=== PATIENT | female | born 1970 | race Caucasian/White ===

== ENCOUNTER 2019-10-20 22:42 | Inpatient (IN) | payer MEDICAID ==
[~2019-10-20] VITALS: Ht 162.6 cm; Wt 75.5 kg
[2019-10-20 23:35] VITALS: BP 122/78
[2019-10-20 23:55] VITALS: BP 122/78
[2019-10-21] MEDS ORDERED: ONDANSETRON HCL 4 MG/2 ML VIAL IV PRN (00:15)
[2019-10-21] MEDS ORDERED: MORPHINE SULF INJ 2 MG/ML SYRINGE 1ML IV PRN (00:15)
[2019-10-21] MEDS ORDERED: NITROGLYCERIN 0.4 MG SL TAB SL PRN (00:15)
[2019-10-21] MEDS ORDERED: IBUPROFEN 600 MG TAB PO PRN (00:30)
[2019-10-21] MEDS ORDERED: CAR3125T PO (02:20)
[2019-10-21] MEDS ORDERED: FURO1TAB33 PO (02:21)
[2019-10-21] MEDS ORDERED: POTA10TA51 PO (02:21)
[2019-10-21] MEDS ORDERED: ASPI-231 PO (02:22)
[2019-10-21] MEDS ORDERED: SPIR25TA8 PO (02:22)
[2019-10-21 04:57] VITALS: BP 113/77
[2019-10-21 05:19] LABS: Basophils # (auto) 0.1 10 ^3/uL (0-0.2); Basophils % (auto) 0.7 % (0.0-2.0); Eosinophils # (auto) 0.1 10 ^3/uL (0-0.8); Eosinophils % (auto) 1.9 % (0.0-7.0); Hematocrit 36.9 % (36.0-46.0); Hemoglobin 11.7 g/dL (12.2-16.2); Lymphocytes # (auto) 2.2 10 ^3/uL (0.4-5.4); Lymphocytes % (auto) 30.3 % (10.0-50.0); Mean Corpuscular Hemoglobin 24.5 pg (28.0-32.0); Mean Corpuscular Hgb Conc. 31.6 g/dL (32.0-36.0); Mean Corpuscular Volume 77.4 fL (80.0-100.0); Monocytes # (auto) 0.6 10 ^3/uL (0-1.3); Monocytes % (auto) 8.3 % (0.0-12.0); Neutrophils # (auto) 4.2 10 ^3/uL (1.6-8.6); Neutrophils % (auto) 58.8 % (37.0-80.0); Nucleated Red Blood Cells % 0.1 %; Platelet Count (auto) 424 10^3/uL (140-450); Red Blood Cells 4.77 10^6/uL (4.0-5.20); Red Cell Distribution Width 19.2 % (11.8-14.3); White Blood Cell 7.1 10^3/uL (4.4-10.8)
[2019-10-21 05:38] LABS: Calcium 8.6 mg/dL (8.5-10.1); Potassium 3.9 mmol/L (3.5-5.1)
[2019-10-21 05:43] LABS: BUN/Creatinine Ratio 22.9
[2019-10-21 08:47] VITALS: BP 109/78
[2019-10-21] MEDS ORDERED: MIDAZOLAM HCL 1MG/1ML-2 ML VIAL ONE (09:53)
[2019-10-21] MEDS ORDERED: fentaNYL CITRATE 100 MCG/2 ML VL ONE (09:53)
[2019-10-21] MEDS ORDERED: SODIUM CHL 0.9% 0 ML ONE (09:53)
[2019-10-21] MEDS ORDERED: ANGIOMAX 250 MG VIAL IV ONE (09:53)
[2019-10-21] MEDS ORDERED: VERAPAMIL 2.5MG/ML INJ 2ML VIAL IV ONE (09:53)
[2019-10-21] MEDS ORDERED: IODIXANOL 320MG/ML 100ML BTL IV ONE (09:53)
[2019-10-21] MEDS ORDERED: LIDOCAINE 2%HCL (LOCAL ANESTH.) INJ 20ML MDV ONE ×2 (09:53→10:06)
[2019-10-21] MEDS ORDERED: HEPARIN IN NS 1000Units/500mL 0 ML ONE (09:54)
[2019-10-21] MEDS ORDERED: ENOXAPARIN SOD 40 MG/0.4 ML SYRINGE SC SCH (10:00)
[2019-10-21] MEDS ORDERED: CARVEDILOL 3.125 MG TAB PO SCH (10:00)
[2019-10-21] MEDS ORDERED: ATORVASTATIN 20 MG TAB PO SCH (10:00)
[2019-10-21] MEDS ORDERED: ASPirin 81 mg TAB PO SCH (10:00)
[2019-10-21 10:11] LABS: INR 1.13 (0.9-1.15); Partial Thromboplastin Time 25.1 sec (23.64-32.05)
[2019-10-21] MEDS ORDERED: methylPREDNISolone SOD SUCC 125 MG/2 ML VL ONE (10:48)
[2019-10-21] MEDS ORDERED: FAMOTIDINE (10MG/ML) 2ML VL IV ONE (10:48)
[2019-10-21] MEDS ORDERED: diphenhdrAMINE HCL 50 MG/1 ML VL ONE (10:48)
[2019-10-21] MEDS ORDERED: HEPARIN SODIUM (PORCINE) 5000 UNITS/ML 1ML VIAL ONE (11:00)
[2019-10-21 13:00] VITALS: BP 106/72
[2019-10-21 17:00] VITALS: BP 109/79
[2019-10-21] MEDS ORDERED: LISI2.5T47 PO (17:13)
[2019-10-21] MEDS ORDERED: LISINOPRIL 5 MG TAB PO ONE (17:15)
== END 2019-10-21 19:20 | disposition home or self-care (01) | DRG 190 ==
LOC: TELE-WESTW 23:40
PROVIDERS: ADMIT Internal Medicine; ATTEND Internal Medicine
PROC: 4A023N7 Measurement of Cardiac Sampling and Pressure, Left Heart, Percutaneous Approach (ICD-10-PCS; principal; 2019-10-21)
PROC: B211YZZ Fluoroscopy of Multiple Coronary Arteries using Other Contrast (ICD-10-PCS; 2019-10-21)
DX: I21.4 Non-ST elevation (NSTEMI) myocardial infarction (principal); I42.0 Dilated cardiomyopathy; F15.90 Other stimulant use, unspecified, uncomplicated; Z72.0 Tobacco use; Z79.899 Other long term (current) drug therapy; Z82.49 Family history of ischemic heart disease and other diseases of the circulatory system; Z82.5 Family history of asthma and other chronic lower respiratory diseases; Z91.041 Radiographic dye allergy status; Z79.82 Long term (current) use of aspirin
CPT/HCPCS: 36415; 80048; 80061; 81025; 83036; 84484; 85025; 85610; 85730; 87081; 93458; G0378; J2250; J3490; Q9967

== ENCOUNTER 2019-12-04 08:21 | Inpatient (IN) | payer MEDICAID ==
[~2019-12-04] VITALS: Ht 167.6 cm; Wt 80.7 kg
[~2019-12-04 08:21] MED LIST: ASPI-231 PO; CAR3125T PO; LISI2.5T47 PO; POTA10TA51 PO; SPIR25TA8 PO
[2019-12-04 08:50] LABS: Basophils # (auto) 0.1 10 ^3/uL (0-0.2); Eosinophils # (auto) 0.1 10 ^3/uL (0-0.8); Hemoglobin 11.4 g/dL (12.2-16.2)
[2019-12-04 08:52] LABS: Basophils % (auto) 0.8 % (0.0-2.0); Eosinophils % (auto) 1.3 % (0.0-7.0); Hematocrit 37.2 % (36.0-46.0); Lymphocytes # (auto) 2.3 10 ^3/uL (0.4-5.4); Mean Corpuscular Hgb Conc. 30.7 g/dL (32.0-36.0); Mean Corpuscular Volume 75.1 fL (80.0-100.0); Monocytes # (auto) 0.6 10 ^3/uL (0-1.3); Monocytes % (auto) 8.1 % (0.0-12.0); Neutrophils # (auto) 4.4 10 ^3/uL (1.6-8.6); Neutrophils % (auto) 58.8 % (37.0-80.0); Nucleated Red Blood Cells % 0.1 %; Platelet Count (auto) 287 10^3/uL (140-450); Red Blood Cells 4.95 10^6/uL (4.0-5.20); White Blood Cell 7.5 10^3/uL (4.4-10.8)
[2019-12-04 08:55] LABS: Red Cell Distribution Width 23.5 % (11.8-14.3)
[2019-12-04 09:05] LABS: Albumin 3.4 g/dL (3.4-5.0); BUN/Creatinine Ratio 19.5; Calcium 8.5 mg/dL (8.5-10.1); Potassium 3.6 mmol/L (3.5-5.1)
[2019-12-04 09:10] LABS: Urine Bacteria FEW /hpf (None Seen); Urine Blood Negative /uL (Negative); Urine Hyaline Cast FEW /lpf (0 - 2); Urine Specific Gravity 1.019 (1.001-1.035); Urine WBC 9 /hpf (0 - 5)
[2019-12-04 09:11] LABS: Bilirubin, Total 1.3 mg/dL (0.2-1.0); Total Protein 7.5 g/dL (6.4-8.2)
[2019-12-04 09:34] LABS: Alcohol, Urine < 3.0 mg/dL (0-5); Amphetamine Screen, Urine NEGATIVE (NEGATIVE); Barbiturate Scree,Urine NEGATIVE (NEGATIVE); Benzodiazephine Screen, Urine NEGATIVE (NEGATIVE); Cannabinoid Screen, Urine NEGATIVE (NEGATIVE); Cocaine Screen, Urine NEGATIVE (NEGATIVE); Opiate Scree,Urine NEGATIVE (NEGATIVE); Phencyclidine Screen, Urine NEGATIVE (NEGATIVE)
[2019-12-04] MEDS ORDERED: FUROSEMIDE 20 MG/2 ML VIAL IV ONE ×2 (10:30→15:15)
[2019-12-04] MEDS ORDERED: SPIRONOLACTONE 25 MG TAB PO ONE (10:30)
[2019-12-04] MEDS ORDERED: cefTRIAXone 1GM/50ML D5W 50 ML IV ONE (10:30)
[2019-12-04] MEDS ORDERED: MORPHINE SULF INJ 2 MG/ML SYRINGE 1ML IV PRN ×2 (11:15)
[2019-12-04] MEDS ORDERED: NITROGLYCERIN 0.4 MG SL TAB SL PRN (11:15)
[2019-12-04] MEDS ORDERED: ONDANSETRON HCL 4 MG/2 ML VIAL IV PRN (11:15)
[2019-12-04] MEDS ORDERED: ACETAMINOPHEN 325 MG TAB PO PRN (11:15)
[2019-12-04] MEDS: CARVEDILOL 3.125 MG TAB PO SCH ×2 (12:30→17:48)
--- NOTE | 2019-12-04 12:30 | NUR ---
Telemetry admit from ER DIONICIOPATRICIA admitted to Telemetry unit after SBAR received. Patient oriented to PAULA VICTORIA, primary RN, unit, room, bed, and unit policies regarding patient care and visiting hours. Patient now on continuous telemetry monitoring, tele box #80 and telemetry reading on arrival to unit is SR. Patient encouraged to call if they need something. All questions and concerns addressed, patient verbalized understanding. Patient is alert and oriented and ambulatory independently. Skin is intact. She is sitting on the side of the bed eating lunch at this time. Bilateral heels are dry and cracked, she is wearing slippers.
[2019-12-04 13:27] VITALS: BP 131/90
[2019-12-04 17:00] VITALS: BP 119/89
[2019-12-04] MEDS ORDERED: ATORVASTATIN 20 MG TAB PO SCH (18:00)
--- NOTE | 2019-12-04 19:25 | NUR ---
Opening shift note Assumed care of patient. patient A&Ox4, respirations even and non-labored with no s/s of distress. Discussed POC with patient who verbalized understanding. Bed lowered/locked with 2 side rails up. Call light within reach, will continue to monitor.
[2019-12-04] MEDS: ALPRAZolam 0.25 MG TAB PO SCH (21:55)
[2019-12-04 22:00] VITALS: BP 116/87
[2019-12-04] MEDS ORDERED: AMITRIPTYLINE HCL 10 MG TAB PO SCH (22:00)
[2019-12-05 05:00] VITALS: BP 119/81
[2019-12-05 06:57] LABS: Basophils # (auto) 0.1 10 ^3/uL (0-0.2); Eosinophils # (auto) 0.1 10 ^3/uL (0-0.8); Lymphocytes # (auto) 2.5 10 ^3/uL (0.4-5.4); Mean Corpuscular Hemoglobin 23.3 pg (28.0-32.0); Neutrophils # (auto) 3.1 10 ^3/uL (1.6-8.6); White Blood Cell 6.3 10^3/uL (4.4-10.8)
[2019-12-05 06:59] LABS: Basophils % (auto) 1.1 % (0.0-2.0); Eosinophils % (auto) 2.3 % (0.0-7.0); Hematocrit 36.5 % (36.0-46.0); Hemoglobin 11.3 g/dL (12.2-16.2); Lymphocytes % (auto) 40.1 % (10.0-50.0); Mean Corpuscular Hgb Conc. 31.1 g/dL (32.0-36.0); Monocytes # (auto) 0.5 10 ^3/uL (0-1.3); Monocytes % (auto) 7.2 % (0.0-12.0); Neutrophils % (auto) 49.3 % (37.0-80.0); Nucleated Red Blood Cells % 0.1 %; Platelet Count (auto) 291 10^3/uL (140-450); Red Blood Cells 4.86 10^6/uL (4.0-5.20)
[2019-12-05 07:03] LABS: Red Cell Distribution Width 23.4 % (11.8-14.3)
[2019-12-05 07:12] LABS: Albumin 3.1 g/dL (3.4-5.0); Calcium 8.3 mg/dL (8.5-10.1); Potassium 3.3 mmol/L (3.5-5.1)
[2019-12-05 07:16] LABS: BUN/Creatinine Ratio 20.2
--- NOTE | 2019-12-05 07:30 | NUR ---
OPENING NOTE ASSUMED CARE OF PT. PT ALERT AND ORIENTED. NO S/S OF SOB/DISTRESS NOTED. BED SET TO LOWEST POSITION/LOCKED, BEDSIDE RAILS UP X2, CALL LIGHT WITHIN REACH. INSTRUCTED PATIENT TO CALL FOR ASSISTANCE. UPDATED ON POC. PT VERBALIZED UNDERSTANDING. WILL CONTINUE TO MONITOR Q1HR AND PRN.
--- NOTE | 2019-12-05 07:33 | NUR ---
Closing shift note Patient resting with eyes closed, respirations even and non-labored with no s/s of distress. Endorsed care to day shift primary care RN.
[2019-12-05 08:48] VITALS: BP 106/83
[2019-12-05] MEDS: CARVEDILOL 3.125 MG TAB PO SCH (09:12)
[2019-12-05] MEDS: ALPRAZolam 0.25 MG TAB PO SCH (09:12)
[2019-12-05] MEDS ORDERED: cefTRIAXone 1GM/50ML D5W 50 ML IV SCH (10:00)
[2019-12-05] MEDS ORDERED: POTASSIUM CHL 10 Meq TABLET PO SCH (10:00)
[2019-12-05] MEDS ORDERED: LISINOPRIL 5 MG TAB PO SCH (10:00)
[2019-12-05] MEDS ORDERED: SPIRONOLACTONE 25 MG TAB PO SCH (10:00)
[2019-12-05] MEDS ORDERED: ASPirin-EC 81 mg tab PO SCH (10:00)
[2019-12-05] MEDS ORDERED: ENOXAPARIN SOD 40 MG/0.4 ML SYRINGE SC SCH (10:00)
[2019-12-05] MEDS ORDERED: [UNRECOGNIZED DRUG - CODE] PO (11:09)
[2019-12-05] MEDS ORDERED: ALPR0.25 PO (11:09)
[2019-12-05 12:46] VITALS: BP 106/83
[2019-12-05 12:59] VITALS: BP 109/87
--- NOTE | 2019-12-05 13:38 | NUR ---
TELE MONITOR TELE BOX SENT BACK TO ICU. SOLUTION DESIGNER ELLIE IS AWARE. Addendum: 12/05/19 at 1340 by Tracy Rainey RN TELE BOX #[id number]
--- NOTE | 2019-12-05 13:39 | NUR ---
Discharge instructions given as ordered. Encourage to follow up with PMD as instructed. All questions and concerns addressed. Patient verbalized understanding. IV removed with catheter intact, pressure dressing applied. Telemetry unit returned to ICU #80.
--- NOTE | 2019-12-05 13:53 | NUR ---
Patient taken to vehicle via wheelchair with all personal belongings, accompanied by staff and family member. No distress noted at time of departure.
== END 2019-12-05 13:45 | disposition home or self-care (01) | DRG 194 ==
LOC: ER 08:21 → TELE-WESTW 08:22
PROVIDERS: ADMIT Hospitalist; ATTEND Hospitalist
DX: I11.0 Hypertensive heart disease with heart failure (principal); N30.00 Acute cystitis without hematuria; I42.8 Other cardiomyopathies; I50.43 Acute on chronic combined systolic (congestive) and diastolic (congestive) heart failure; I20.0 Unstable angina; F41.0 Panic disorder [episodic paroxysmal anxiety]; R09.89 Other specified symptoms and signs involving the circulatory and respiratory systems; F15.10 Other stimulant abuse, uncomplicated; R14.0 Abdominal distension (gaseous); G47.00 Insomnia, unspecified; I25.5 Ischemic cardiomyopathy; J44.9 Chronic obstructive pulmonary disease, unspecified; Z82.49 Family history of ischemic heart disease and other diseases of the circulatory system; Z90.49 Acquired absence of other specified parts of digestive tract; I25.2 Old myocardial infarction; Z79.899 Other long term (current) drug therapy
CPT/HCPCS: 36415; 71045; 78582; 80053; 80307; 81001; 81025; 84484; 85025; 85379; 87081; 87086; 93005; G0378; J0696

== ENCOUNTER 2019-12-23 15:10 | Inpatient (IN) | payer MEDICAID ==
[~2019-12-23] VITALS: Ht 160 cm; Wt 97.1 kg
[~2019-12-23 15:10] MED LIST changes: +ALPR0.25 PO; -POTA10TA51 PO; +[UNRECOGNIZED DRUG - CODE] PO
[2019-12-23] MEDS ORDERED: AZITHROMYCIN 500MG/ 250ML 250 ML IV ONE (15:30)
[2019-12-23] MEDS ORDERED: FUROSEMIDE 40 MG/4 ML VIAL IV ONE ×2 (15:30→18:45)
[2019-12-23] MEDS ORDERED: cefTRIAXone 1GM/50ML D5W 50 ML IV ONE (15:30)
[2019-12-23] MEDS ORDERED: cefTRIAXone SOD 1,000 MG VL ONE (15:36)
[2019-12-23] MEDS ORDERED: FUROSEMIDE 20 MG/2 ML VIAL ONE (15:37)
[2019-12-23 15:44] LABS: Eosinophils # (auto) 0 10 ^3/uL (0-0.8); Eosinophils % (auto) 0.1 % (0.0-7.0); Monocytes # (auto) 0.3 10 ^3/uL (0-1.3)
[2019-12-23 15:45] LABS: Basophils # (auto) 0.1 10 ^3/uL (0-0.2); Hematocrit 39.5 % (36.0-46.0); Lymphocytes # (auto) 0.3 10 ^3/uL (0.4-5.4); Lymphocytes % (auto) 5.8 % (10.0-50.0); Mean Corpuscular Hemoglobin 22.7 pg (28.0-32.0); Mean Corpuscular Hgb Conc. 30.5 g/dL (32.0-36.0); Mean Corpuscular Volume 74.6 fL (80.0-100.0); Monocytes % (auto) 4.3 % (0.0-12.0); Neutrophils # (auto) 5.4 10 ^3/uL (1.6-8.6); Neutrophils % (auto) 88.8 % (37.0-80.0); Nucleated Red Blood Cells % 0.5 %; Platelet Count (auto) 225 10^3/uL (140-450); White Blood Cell 6.1 10^3/uL (4.4-10.8)
[2019-12-23] MEDS ORDERED: LORazepam 2MG/ML-1ML VIAL IV ONE (15:45)
[2019-12-23 15:52] LABS: Albumin 3.2 g/dL (3.4-5.0); BUN/Creatinine Ratio 9.3; INR 1.23 (0.9-1.15); Partial Thromboplastin Time 27.1 sec (23.64-32.05); Potassium 3.4 mmol/L (3.5-5.1)
[2019-12-23 16:01] LABS: Bilirubin, Total 2.7 mg/dL (0.2-1.0); Total Protein 7.3 g/dL (6.4-8.2)
[2019-12-23 16:52] LABS: Urine WBC None Seen /hpf (0 - 5)
[2019-12-23 17:07] LABS: Urine Bacteria NONE SEEN /hpf (None Seen); Urine Blood Negative /uL (Negative); Urine Specific Gravity 1.007 (1.001-1.035)
[2019-12-23] MEDS ORDERED: ENOXAPARIN SOD 80 MG/0.8ML SYRINGE SC ONE (18:00)
[2019-12-23] MEDS ORDERED: CLOPIDOGREL BISULFATE 75 MG TAB PO ONE (18:45)
[2019-12-23] MEDS ORDERED: ASPirin 81 mg TAB PO ONE (18:45)
[2019-12-23] MEDS ORDERED: ATORVASTATIN 20 MG TAB PO ONE (18:45)
[2019-12-23] MEDS ORDERED: METOPROLOL SUCCINATE XL 50 MG TAB PO ONE (18:45)
[2019-12-23] MEDS ORDERED: NITROGLYCERIN 0.4 MG SL TAB SL PRN (19:00)
[2019-12-23] MEDS ORDERED: MORPHINE SULF INJ 2 MG/ML SYRINGE 1ML IV PRN (19:00)
[2019-12-23 22:00] VITALS: BP 126/87
[2019-12-23] MEDS: AMITRIPTYLINE HCL 10 MG TAB PO SCH (22:25)
[2019-12-23] MEDS: ALPRAZolam 0.25 MG TAB PO SCH (22:25)
[2019-12-23] MEDS: ATORVASTATIN 20 MG TAB PO SCH (22:25)
[2019-12-23] MEDS: CARVEDILOL 3.125 MG TAB PO SCH (22:26)
[2019-12-23 22:58] VITALS: BP 126/87
[2019-12-24] MEDS ORDERED: DOCUSATE SOD 100 MG CAP PO PRN (00:45)
[2019-12-24] MEDS ORDERED: MORPHINE SULF INJ 2 MG/ML SYRINGE 1ML IV PRN ×2 (00:45)
[2019-12-24] MEDS ORDERED: LORazepam 0.5 MG TAB PO PRN (00:45)
[2019-12-24] MEDS ORDERED: ALUM & MAG HYDROX-SIMETH LIQ(MAALOX) 30 ML PO PRN (00:45)
[2019-12-24] MEDS ORDERED: ONDANSETRON HCL 4 MG/2 ML VIAL IV PRN (00:45)
[2019-12-24] MEDS ORDERED: NITROGLYCERIN 0.4 MG SL TAB SL PRN (00:45)
[2019-12-24] MEDS ORDERED: HYDROcodone-ACET 5/325MG TAB PO PRN (00:45)
[2019-12-24] MEDS ORDERED: POTASSIUM CHL 20 Meq TABLET PO ONE (01:00)
[2019-12-24 04:30] VITALS: BP 116/60
[2019-12-24 06:59] LABS: Basophils # (auto) 0 10 ^3/uL (0-0.2); Eosinophils # (auto) 0 10 ^3/uL (0-0.8); Eosinophils % (auto) 0.2 % (0.0-7.0); Hemoglobin 11.5 g/dL (12.2-16.2); Mean Corpuscular Hemoglobin 22.6 pg (28.0-32.0); Monocytes # (auto) 0.6 10 ^3/uL (0-1.3); Neutrophils # (auto) 3.7 10 ^3/uL (1.6-8.6); Nucleated Red Blood Cells % 0.6 %
[2019-12-24 07:02] LABS: Basophils % (auto) 0.8 % (0.0-2.0); Lymphocytes # (auto) 1.2 10 ^3/uL (0.4-5.4); Lymphocytes % (auto) 21.6 % (10.0-50.0); Mean Corpuscular Hgb Conc. 30.4 g/dL (32.0-36.0); Mean Corpuscular Volume 74.3 fL (80.0-100.0); Monocytes % (auto) 10.4 % (0.0-12.0); Platelet Count (auto) 225 10^3/uL (140-450); Red Blood Cells 5.11 10^6/uL (4.0-5.20); White Blood Cell 5.5 10^3/uL (4.4-10.8)
[2019-12-24 07:10] LABS: Albumin 2.8 g/dL (3.4-5.0); Calcium 7.6 mg/dL (8.5-10.1); Magnesium 1.8 mg/dL (1.6-2.6); Potassium 3.1 mmol/L (3.5-5.1)
[2019-12-24 07:12] LABS: Red Cell Distribution Width 24.8 % (11.8-14.3)
[2019-12-24 07:16] LABS: BUN/Creatinine Ratio 14.1; Bilirubin, Total 2.2 mg/dL (0.2-1.0); Phosphorus 2.4 mg/dL (2.5-4.90); Total Protein 6.7 g/dL (6.4-8.2)
[2019-12-24 07:26] LABS: INR 1.25 (0.9-1.15)
[2019-12-24] MEDS: FUROSEMIDE 40 MG/4 ML VIAL IV SCH ×2 (08:46→18:44)
[2019-12-24] MEDS: ASPirin-EC 81 mg tab PO SCH (08:47)
[2019-12-24] MEDS: ALPRAZolam 0.25 MG TAB PO SCH ×2 (08:47→22:05)
[2019-12-24] MEDS: CARVEDILOL 3.125 MG TAB PO SCH (08:48)
[2019-12-24 08:57] VITALS: BP 103/62
[2019-12-24] MEDS ORDERED: FUROSEMIDE 40 MG/4 ML VIAL IV SCH (10:00)
[2019-12-24] MEDS ORDERED: POTASSIUM CHL 20 Meq TABLET PO SCH (10:00)
[2019-12-24] MEDS ORDERED: LISINOPRIL 5 MG TAB PO SCH (10:00)
[2019-12-24] MEDS ORDERED: ENOXAPARIN SOD 60 MG/0.6 ML SYRINGE SC SCH ×2 (10:00→22:00)
[2019-12-24] MEDS ORDERED: SPIRONOLACTONE 25 MG TAB PO SCH (10:00)
[2019-12-24] MEDS: POTASSIUM CHL 20 Meq TABLET PO SCH ×2 (11:30→22:06)
[2019-12-24] MEDS ORDERED: ALBUMIN 25% 100 ML IV ONE (12:45)
[2019-12-24 12:59] VITALS: BP 91/65
[2019-12-24 16:24] VITALS: BP 138/86
[2019-12-24 21:24] VITALS: BP 109/79
[2019-12-24] MEDS: ATORVASTATIN 20 MG TAB PO SCH (22:06)
[2019-12-24] MEDS: AMITRIPTYLINE HCL 10 MG TAB PO SCH (22:07)
[2019-12-24] MEDS: OXYCODONE W/ ACETAMINOPHEN 5/325MG TABLET PO PRN (22:08)
[2019-12-25] VITALS (7 sets, daily range): BP systolic 108–124; BP diastolic 49–87
[2019-12-25 06:02] LABS: Potassium 3.5 mmol/L (3.5-5.1)
[2019-12-25 06:10] LABS: BUN/Creatinine Ratio 23.3; Calcium 7.8 mg/dL (8.5-10.1)
[2019-12-25] MEDS: FUROSEMIDE 40 MG/4 ML VIAL IV SCH ×2 (06:48→17:59)
[2019-12-25] MEDS: POTASSIUM CHL 20 Meq TABLET PO SCH ×2 (10:52→22:00)
[2019-12-25] MEDS: ASPirin-EC 81 mg tab PO SCH (10:52)
[2019-12-25] MEDS: ALPRAZolam 0.25 MG TAB PO SCH ×2 (10:54→22:00)
[2019-12-25] MEDS: OXYCODONE W/ ACETAMINOPHEN 5/325MG TABLET PO PRN (20:30)
[2019-12-25] MEDS: AMITRIPTYLINE HCL 10 MG TAB PO SCH (22:00)
[2019-12-25] MEDS: ATORVASTATIN 20 MG TAB PO SCH (22:00)
[2019-12-26 05:00] VITALS: BP 114/81
[2019-12-26] MEDS: FUROSEMIDE 40 MG/4 ML VIAL IV SCH (05:56)
[2019-12-26 08:30] VITALS: BP 106/58
[2019-12-26] MEDS: ASPirin-EC 81 mg tab PO SCH (10:05)
[2019-12-26] MEDS: POTASSIUM CHL 20 Meq TABLET PO SCH (10:05)
[2019-12-26] MEDS: ALPRAZolam 0.25 MG TAB PO SCH (10:06)
[2019-12-26 10:43] LABS: Alcohol, Urine < 3.0 mg/dL (0-10); Cannabinoid Screen, Urine NEGATIVE (NEGATIVE)
[2019-12-26 10:45] LABS: Amphetamine Screen, Urine NEGATIVE (NEGATIVE); Barbiturate Scree,Urine NEGATIVE (NEGATIVE); Benzodiazephine Screen, Urine NEGATIVE (NEGATIVE); Cocaine Screen, Urine NEGATIVE (NEGATIVE); Opiate Scree,Urine NEGATIVE (NEGATIVE); Phencyclidine Screen, Urine NEGATIVE (NEGATIVE)
[2019-12-26] MEDS ORDERED: POTA-220 PO (11:13)
[2019-12-26] MEDS ORDERED: FURO40TA4 PO (11:13)
[2019-12-26 13:46] VITALS: BP 112/69
== END 2019-12-26 16:00 | disposition home or self-care (01) | DRG 194 ==
LOC: ER 15:10 → EDBD 15:10 → TELE 15:11 → TELE-EAST 21:12
PROVIDERS: ADMIT Hospitalist; ATTEND Hospitalist
DX: I11.0 Hypertensive heart disease with heart failure (principal); E87.3 Alkalosis; I42.0 Dilated cardiomyopathy; J44.1 Chronic obstructive pulmonary disease with (acute) exacerbation; F10.10 Alcohol abuse, uncomplicated; D50.9 Iron deficiency anemia, unspecified; I50.43 Acute on chronic combined systolic (congestive) and diastolic (congestive) heart failure; R06.03 Acute respiratory distress; E87.6 Hypokalemia; R79.89 Other specified abnormal findings of blood chemistry; I16.9 Hypertensive crisis, unspecified; F41.9 Anxiety disorder, unspecified; E78.5 Hyperlipidemia, unspecified; F17.200 Nicotine dependence, unspecified, uncomplicated; F15.10 Other stimulant abuse, uncomplicated; I25.10 Atherosclerotic heart disease of native coronary artery without angina pectoris; Z79.82 Long term (current) use of aspirin; Z79.899 Other long term (current) drug therapy; Z88.5 Allergy status to narcotic agent; Z91.041 Radiographic dye allergy status; D63.8 Anemia in other chronic diseases classified elsewhere
CPT/HCPCS: 36415; 36600; 71045; 80048; 80053; 80307; 81001; 82805; 83735; 83880; 84100; 84484; 85025; 85610; 85730; 87081; 93005; 93306; 99291; G0378; J0696; P9047

== ENCOUNTER 2021-05-19 15:40 | Inpatient (IN) | payer MEDICAID ==
[~2021-05-19] VITALS: Ht 160 cm; Wt 66.0 kg
[~2021-05-19 15:40] MED LIST changes: +AMIT10TA9 PO; -ASPI-231 PO; +ASPI1TAB20 PO; +FURO40TA4 PO; -LISI2.5T47 PO; +POTA-220 PO; -[UNRECOGNIZED DRUG - CODE] PO
[2021-05-19] MEDS ORDERED: methylPREDNISolone SOD SUCC 125 MG/2 ML VL IV ONE (16:15)
[2021-05-19 20:27] LABS: Basophils # (auto) 0 10 ^3/uL (0-0.2); Eosinophils # (auto) 0 10 ^3/uL (0-0.8); Hemoglobin 12.8 g/dL (12.2-16.2); Lymphocytes # (auto) 0.9 10 ^3/uL (0.4-5.4); Mean Corpuscular Volume 72.2 fL (80.0-100.0)
[2021-05-19 20:29] LABS: Basophils % (auto) 0.5 % (0.0-2.0); Eosinophils % (auto) 0.1 % (0.0-7.0); Hematocrit 41.7 % (36.0-46.0); Lymphocytes % (auto) 19.8 % (10.0-50.0); Mean Corpuscular Hemoglobin 22.1 pg (28.0-32.0); Mean Corpuscular Hgb Conc. 30.7 g/dL (32.0-36.0); Monocytes # (auto) 0.3 10 ^3/uL (0-1.3); Neutrophils # (auto) 3.4 10 ^3/uL (1.6-8.6); Neutrophils % (auto) 73.6 % (37.0-80.0); Nucleated Red Blood Cells % 1.1 %; Red Blood Cells 5.77 10^6/uL (4.0-5.20); Red Cell Distribution Width 20.1 % (11.8-14.3); White Blood Cell 4.6 10^3/uL (4.4-10.8)
[2021-05-19 20:47] LABS: Albumin 2.7 g/dL (3.4-5.0); Calcium 7.6 mg/dL (8.5-10.1); Magnesium 1.9 mg/dL (1.6-2.6); Potassium 3.4 mmol/L (3.5-5.1)
[2021-05-19 20:50] LABS: BUN/Creatinine Ratio 9.6; Total Protein 7.4 g/dL (6.4-8.2)
[2021-05-19] MEDS ORDERED: TEMAZEPAM 15 MG CAP PO PRN (22:15)
[2021-05-19] MEDS ORDERED: NITROGLYCERIN 0.4 MG SL TAB SL PRN (22:15)
[2021-05-19] MEDS ORDERED: ONDANSETRON HCL 4 MG/2 ML VIAL IV PRN (22:15)
[2021-05-19] MEDS ORDERED: POTASSIUM CHL 20 Meq TABLET PO ONE (22:15)
[2021-05-19] MEDS ORDERED: ACETAMINOPHEN 500 MG TAB PO PRN (22:15)
[2021-05-19] MEDS ORDERED: AZITHROMYCIN 500MG/ 250ML 250 ML IV ONE (22:15)
[2021-05-19] MEDS ORDERED: ENOXAPARIN SOD 100 MG/1 ML SYRINGE SC ONE (22:15)
[2021-05-19] MEDS ORDERED: cefTRIAXone 1GM/50ML D5W 50 ML IV ONE (22:15)
[2021-05-19] MEDS ORDERED: MORPHINE SULFATE INJECTION 2 MG/ML SYRG IV PRN (22:15)
[2021-05-19] MEDS ORDERED: IOHEXOL 350 MG/ML 100ML IJ ONE (22:25)
[2021-05-20 01:14] VITALS: BP 124/71
[2021-05-20] MEDS ORDERED: clonazePAM 0.5 MG TAB PO ONE (03:00)
[2021-05-20] MEDS: FUROSEMIDE 40 MG TAB PO SCH ×2 (06:35→18:39)
[2021-05-20 07:17] LABS: Urine Bacteria FEW /hpf (None Seen); Urine Blood Negative /uL (Negative); Urine Specific Gravity 1.014 (1.001-1.035); Urine WBC 1 /hpf (0 - 5)
[2021-05-20 09:41] LABS: Albumin 2.2 g/dL (3.4-5.0); Basophils # (auto) 0 10 ^3/uL (0-0.2); Calcium 7.6 mg/dL (8.5-10.1); Eosinophils # (auto) 0 10 ^3/uL (0-0.8); Eosinophils % (auto) 0.1 % (0.0-7.0); Monocytes # (auto) 0.1 10 ^3/uL (0-1.3); Potassium 3.4 mmol/L (3.5-5.1); White Blood Cell 2.3 10^3/uL (4.4-10.8)
[2021-05-20 09:43] LABS: Hematocrit 43.2 % (36.0-46.0); Lymphocytes # (auto) 0.5 10 ^3/uL (0.4-5.4); Lymphocytes % (auto) 22.6 % (10.0-50.0); Mean Corpuscular Hemoglobin 22.1 pg (28.0-32.0); Mean Corpuscular Hgb Conc. 30.1 g/dL (32.0-36.0); Mean Corpuscular Volume 73.5 fL (80.0-100.0); Monocytes % (auto) 4.7 % (0.0-12.0); Neutrophils # (auto) 1.7 10 ^3/uL (1.6-8.6); Neutrophils % (auto) 72.6 % (37.0-80.0); Nucleated Red Blood Cells % 1.2 %; Red Blood Cells 5.87 10^6/uL (4.0-5.20); Red Cell Distribution Width 20.3 % (11.8-14.3)
[2021-05-20 09:45] LABS: BUN/Creatinine Ratio 12.5; Bilirubin, Total 1.9 mg/dL (0.2-1.0); Total Protein 7.2 g/dL (6.4-8.2)
[2021-05-20] MEDS ORDERED: LACTULOSE 20Gm/30ML SOLN PO SCH (10:00)
[2021-05-20] MEDS ORDERED: ENOXAPARIN SOD 40 MG/0.4 ML SYRINGE SC SCH (10:00)
[2021-05-20] MEDS ORDERED: ASPirin 81 mg TAB PO SCH (10:00)
[2021-05-20] MEDS: DexAMETHasone SOD PHOS 10MG/1ML VIAL INJ IV SCH (10:04)
[2021-05-20] MEDS: ZINC SULFATE 220mg CAP or TAB PO SCH (10:04)
[2021-05-20] MEDS: POTASSIUM CHL 10 Meq TABLET PO SCH (10:05)
[2021-05-20] MEDS: CARVEDILOL 3.125 MG TAB PO SCH ×2 (10:05→21:35)
[2021-05-20] MEDS: SPIRONOLACTONE 25 MG TAB PO SCH (10:05)
[2021-05-20] MEDS: ASCORBIC ACID 1,000 MG TAB PO SCH (10:06)
[2021-05-20] MEDS: CHOLECALCIFEROL (VITD3) 2,000 UNIT CAP/TAB PO SCH (10:06)
[2021-05-20] MEDS: PANTOPRAZOLE 40 MG TAB PO SCH (10:06)
[2021-05-20 10:09] LABS: INR 1.42 (0.9-1.15); Partial Thromboplastin Time 36.7 sec (23.6-33.0)
[2021-05-20] MEDS ORDERED: GABA300C10 PO (10:23)
[2021-05-20] MEDS ORDERED: ATOR40TA52 PO (10:23)
[2021-05-20] MEDS ORDERED: FURO20TA3 PO (10:35)
[2021-05-20] MEDS ORDERED: ENOXAPARIN SOD 30 MG/0.3 ML SYRINGE SC ONE (11:00)
[2021-05-20] MEDS ORDERED: POTASSIUM CHL 20 Meq TABLET PO ONE (11:15)
[2021-05-20] MEDS: SOD CHL 0.9%/ KCL 20MEQ 1,000 ML IV SCH (11:41)
[2021-05-20] MEDS: LORazepam 0.5 MG TAB PO PRN (14:31)
[2021-05-20] MEDS: cefTRIAXone 1GM/50ML D5W 50 ML IV SCH (21:34)
[2021-05-20] MEDS: AZITHROMYCIN 500MG/ 250ML 250 ML IV SCH (21:58)
[2021-05-20] MEDS: ATORVASTATIN 20 MG TAB PO SCH (21:59)
[2021-05-20] MEDS ORDERED: ATORVASTATIN 20 MG TAB PO SCH (22:00)
[2021-05-20] MEDS: ALBUTEROL SULF HFA 90MCG INH 200DOSE IN PRN (22:36)
[2021-05-20] MEDS: ENOXAPARIN SOD 80 MG/0.8ML SYRINGE SC SCH (23:50)
[2021-05-21] MEDS: LORazepam 0.5 MG TAB PO PRN ×3 (02:25→23:05)
[2021-05-21 03:30] VITALS: BP 106/72
[2021-05-21] MEDS ORDERED: LACTULOSE 20Gm/30ML SOLN PO PRN (05:00)
[2021-05-21] MEDS: ALBUTEROL SULF HFA 90MCG INH 200DOSE IN PRN ×2 (06:38→22:23)
[2021-05-21 06:46] LABS: Basophils # (auto) 0 10 ^3/uL (0-0.2); Eosinophils # (auto) 0 10 ^3/uL (0-0.8); Hemoglobin 12.5 g/dL (12.2-16.2); Lymphocytes # (auto) 0.6 10 ^3/uL (0.4-5.4); Monocytes # (auto) 0.3 10 ^3/uL (0-1.3); Neutrophils # (auto) 5.3 10 ^3/uL (1.6-8.6); White Blood Cell 6.2 10^3/uL (4.4-10.8)
[2021-05-21 06:50] LABS: Basophils % (auto) 0.1 % (0.0-2.0); Hematocrit 40.3 % (36.0-46.0); Lymphocytes % (auto) 9.4 % (10.0-50.0); Mean Corpuscular Hemoglobin 22.4 pg (28.0-32.0); Mean Corpuscular Hgb Conc. 31.1 g/dL (32.0-36.0); Monocytes % (auto) 4.4 % (0.0-12.0); Neutrophils % (auto) 86.1 % (37.0-80.0); Nucleated Red Blood Cells % 1.2 %; Red Blood Cells 5.59 10^6/uL (4.0-5.20)
[2021-05-21 07:03] LABS: Albumin 2.3 g/dL (3.4-5.0); BUN/Creatinine Ratio 18.8; Calcium 7.7 mg/dL (8.5-10.1); Potassium 4.3 mmol/L (3.5-5.1)
[2021-05-21] MEDS: FUROSEMIDE 40 MG TAB PO SCH (07:03)
[2021-05-21 07:06] LABS: Bilirubin, Total 1.6 mg/dL (0.2-1.0); Total Protein 6.6 g/dL (6.4-8.2)
[2021-05-21 07:50] LABS: Red Cell Distribution Width 20.6 % (11.8-14.3)
[2021-05-21 09:30] VITALS: BP 111/67
[2021-05-21] MEDS: ZINC SULFATE 220mg CAP or TAB PO SCH (10:37)
[2021-05-21] MEDS: PANTOPRAZOLE 40 MG TAB PO SCH (10:37)
[2021-05-21] MEDS: CHOLECALCIFEROL (VITD3) 2,000 UNIT CAP/TAB PO SCH (10:37)
[2021-05-21] MEDS: POTASSIUM CHL 10 Meq TABLET PO SCH (10:37)
[2021-05-21] MEDS: ASCORBIC ACID 1,000 MG TAB PO SCH (10:37)
[2021-05-21] MEDS: SPIRONOLACTONE 25 MG TAB PO SCH (10:37)
[2021-05-21] MEDS: ASPirin 81 mg TAB PO SCH (10:38)
[2021-05-21] MEDS: CARVEDILOL 3.125 MG TAB PO SCH ×2 (10:38→22:00)
[2021-05-21] MEDS: LACTULOSE 20Gm/30ML SOLN PO SCH (10:38)
[2021-05-21] MEDS: DexAMETHasone SOD PHOS 10MG/1ML VIAL INJ IV SCH (10:39)
[2021-05-21] MEDS: ENOXAPARIN SOD 80 MG/0.8ML SYRINGE SC SCH (10:39)
[2021-05-21] MEDS: SOD CHL 0.9%/ KCL 20MEQ 1,000 ML IV SCH (10:42)
[2021-05-21 13:00] VITALS: BP 117/75
[2021-05-21 16:37] VITALS: BP 129/69
[2021-05-21] MEDS: HYDROcodone-ACET 5/325MG TAB PO PRN ×2 (16:54→23:20)
[2021-05-21] MEDS ORDERED: REMDESIVIR PER PHARMACY 0 ML IV SCH (19:15)
[2021-05-21] MEDS ORDERED: REMDESIVIR 200 MG in NS 210ml LOADING DOSE ADULT IV ONE (20:30)
[2021-05-21] MEDS: cefTRIAXone 1GM/50ML D5W 50 ML IV SCH (21:05)
[2021-05-21 22:00] VITALS: BP 100/73
[2021-05-21] MEDS: ATORVASTATIN 20 MG TAB PO SCH (22:11)
[2021-05-21] MEDS: AZITHROMYCIN 500MG/ 250ML 250 ML IV SCH (22:11)
[2021-05-21] MEDS ORDERED: ETOMIDATE (2MG/ML) 20ML VIAL IV ONE (23:30)
[2021-05-21] MEDS ORDERED: SUCCINYLCHOLINE CHLORIDE 20 MG/ML 10ML VIAL IV ONE (23:30)
[2021-05-21] MEDS ORDERED: MIDAZOLAM DRIP 50 mg/50mL 50 ML IV ONE (23:44)
[2021-05-21] MEDS ORDERED: NOREPINEPHRINE 8 MG/250ML KIT 250 ML IV ONE ×2 (23:49→23:53)
[2021-05-21 23:59] LABS: Eosinophils # (auto) 0 10 ^3/uL (0-0.8); Lymphocytes # (auto) 2.7 10 ^3/uL (0.4-5.4); Mean Corpuscular Volume 74.6 fL (80.0-100.0); Neutrophils % (auto) 71.7 % (37.0-80.0)
[2021-05-22] VITALS (100 sets, daily range): BP systolic 103–155; BP diastolic 45–83
[2021-05-22 00:03] LABS: Basophils # (auto) 0 10 ^3/uL (0-0.2); Basophils % (auto) 0.2 % (0.0-2.0); Hematocrit 44.8 % (36.0-46.0); Hemoglobin 13.1 g/dL (12.2-16.2); Lymphocytes % (auto) 23.4 % (10.0-50.0); Mean Corpuscular Hemoglobin 21.9 pg (28.0-32.0); Mean Corpuscular Hgb Conc. 29.4 g/dL (32.0-36.0); Monocytes # (auto) 0.5 10 ^3/uL (0-1.3); Monocytes % (auto) 4.7 % (0.0-12.0); Neutrophils # (auto) 8.2 10 ^3/uL (1.6-8.6); Nucleated Red Blood Cells % 1.5 %; White Blood Cell 11.5 10^3/uL (4.4-10.8)
[2021-05-22 00:11] LABS: Red Cell Distribution Width 20.5 % (11.8-14.3)
[2021-05-22 00:19] LABS: Albumin 2.7 g/dL (3.4-5.0); BUN/Creatinine Ratio 14.8; Calcium 7.7 mg/dL (8.5-10.1); Potassium 4.4 mmol/L (3.5-5.1)
[2021-05-22 00:24] LABS: Bilirubin, Total 1.7 mg/dL (0.2-1.0); Total Protein 7.6 g/dL (6.4-8.2)
[2021-05-22] MEDS ORDERED: SODIUM BICARBONATE 8.4% INJ 50ML SYRINGE ONE (00:38)
[2021-05-22] MEDS ORDERED: PHENYLEPHRINE IV 250 ML IV ONE (00:45)
[2021-05-22] MEDS: PHENYLEPHRINE IV 250 ML IV SCH ×3 (00:45→17:25)
[2021-05-22] MEDS ORDERED: SODIUM BICARBONATE 50ML VIAL 100 ML in SOD CHL 0.45% 1,000 ML IV SCH (00:45)
[2021-05-22] MEDS ORDERED: SODIUM BICARBONATE 8.4 % INJ 50ML VIAL IV ONE (00:45)
[2021-05-22] MEDS ORDERED: fentaNYL Drip 2500mCg/250mlNS 250 ML IV ONE ×2 (01:03→03:18)
[2021-05-22] MEDS: fentaNYL Drip 2500mCg/250mlNS 250 ML IV SCH (02:00)
[2021-05-22] MEDS: MIDAZOLAM DRIP 50 mg/50mL 50 ML IV SCH ×4 (02:30→17:53)
[2021-05-22] MEDS: SODIUM BICARBONATE 50ML VIAL 100 ML in SOD CHL 0.45% 1,000 ML IV SCH ×3 (04:30→21:36)
[2021-05-22] MEDS: NOREPINEPHRINE 8 MG/250ML KIT 250 ML IV SCH ×2 (07:57)
[2021-05-22 09:31] LABS: Hematocrit 40.4 % (36.0-46.0); Hemoglobin 12.2 g/dL (12.2-16.2); Mean Corpuscular Hgb Conc. 30.1 g/dL (32.0-36.0); Mean Corpuscular Volume 73.1 fL (80.0-100.0); Red Blood Cells 5.53 10^6/uL (4.0-5.20); Red Cell Distribution Width 20.3 % (11.8-14.3); White Blood Cell 8.3 10^3/uL (4.4-10.8)
[2021-05-22 09:34] LABS: Basophils % (manual) 0 (0.0-2.0); Blast Cells 0; Eosinophils % (manual) 0 (0-7); Myelocytes % 0; Promyelocytes % 0; Reactive Lymphocytes 0
[2021-05-22] MEDS: SPIRONOLACTONE 25 MG TAB PO SCH (09:54)
[2021-05-22] MEDS: POTASSIUM EFFERVESENT TAB 25 MEQ GT SCH (09:54)
[2021-05-22] MEDS: CHOLECALCIFEROL (VITD3) 2,000 UNIT CAP/TAB PO SCH (09:54)
[2021-05-22] MEDS: PANTOPRAZOLE 40 MG/10 ML VIAL INJ IV SCH (09:54)
[2021-05-22] MEDS: ZINC SULFATE 220mg CAP or TAB PO SCH (09:54)
[2021-05-22] MEDS: LACTULOSE 20Gm/30ML SOLN PO SCH (09:54)
[2021-05-22] MEDS: DexAMETHasone SOD PHOS 10MG/1ML VIAL INJ IV SCH (09:54)
[2021-05-22] MEDS: ASCORBIC ACID 1,000 MG TAB PO SCH (09:54)
[2021-05-22] MEDS: ASPirin 81 mg TAB PO SCH (09:54)
[2021-05-22] MEDS: CARVEDILOL 3.125 MG TAB PO SCH ×2 (09:55→21:08)
[2021-05-22] MEDS ORDERED: POTASSIUM CHL 10 Meq TABLET PO SCH (10:00)
[2021-05-22] MEDS ORDERED: REMDESIVIR 200 MG in NS 210ml LOADING DOSE ADULT IV ONE (10:00)
[2021-05-22] MEDS ORDERED: FUROSEMIDE 40 MG TAB PO SCH (10:00)
[2021-05-22 12:01] LABS: Band Neutrophils % (manual) 7; Lymphocytes % (manual) 6 (10.0-50.0); Metamyelocytes % 1; Monocytes % (manual) 4 (0-12)
[2021-05-22 13:20] LABS: Alanine Aminotransferase 30 U/L (13-56); Alkaline Phosphatase 349 U/L (45-117); Anion Gap 13 (5-15); Aspartate Aminotransferase 68 U/L (15-37); BUN/Creatinine Ratio 18.3; Blood Urea Nitrogen 28 mg/dL (7-18); Calcium 6.9 mg/dL (8.5-10.1); Carbon Dioxide 23 mmol/L (21-32); Chloride 98 mmol/L (98-107); GFR African American 46 mL/min; GFR Non-African American 38 mL/min; Glucose 251 mg/dL (74-106); Potassium 4.8 mmol/L (3.5-5.1); Sodium 134 mmol/L (136-145)
[2021-05-22 13:21] LABS: Albumin 2.2 g/dL (3.4-5.0); Bilirubin, Total 1.8 mg/dL (0.2-1.0); Total Protein 6.1 g/dL (6.4-8.2)
[2021-05-22] MEDS ORDERED: ATROPINE SULF 1 MG/10ml SYR IV ONE (13:41)
[2021-05-22] MEDS ORDERED: EPINEPHrine HCL 1 MG/10 ML SYRG IV ONE (13:41)
[2021-05-22] MEDS ORDERED: SODIUM BICARBONATE 8.4% INJ 50ML SYRINGE IV ONE (13:44)
[2021-05-22] MEDS: FUROSEMIDE 100 MG/10ML VIAL IV SCH (15:21)
[2021-05-22] MEDS: cefTRIAXone 1GM/50ML D5W 50 ML IV SCH (21:08)
[2021-05-22] MEDS: AZITHROMYCIN 500MG/ 250ML 250 ML IV SCH (21:35)
[2021-05-22] MEDS: ATORVASTATIN 20 MG TAB PO SCH (21:36)
[2021-05-23] VITALS (108 sets, daily range): BP systolic 84–136; BP diastolic 47–81
[2021-05-23] MEDS: fentaNYL Drip 2500mCg/250mlNS 250 ML IV SCH ×2 (00:12→19:50)
[2021-05-23] MEDS: PHENYLEPHRINE IV 250 ML IV SCH ×3 (01:45→18:25)
[2021-05-23] MEDS: MIDAZOLAM DRIP 50 mg/50mL 50 ML IV SCH ×2 (02:37→15:06)
[2021-05-23 03:58] LABS: Basophils # (auto) 0 10 ^3/uL (0-0.2); Eosinophils # (auto) 0 10 ^3/uL (0-0.8); Monocytes # (auto) 0.5 10 ^3/uL (0-1.3); Neutrophils # (auto) 6.3 10 ^3/uL (1.6-8.6)
[2021-05-23 03:59] LABS: Basophils % (auto) 0.2 % (0.0-2.0); Hematocrit 38.4 % (36.0-46.0); Hemoglobin 12.1 g/dL (12.2-16.2); Lymphocytes # (auto) 0.6 10 ^3/uL (0.4-5.4); Lymphocytes % (auto) 7.6 % (10.0-50.0); Mean Corpuscular Hemoglobin 22.4 pg (28.0-32.0); Mean Corpuscular Hgb Conc. 31.4 g/dL (32.0-36.0); Mean Corpuscular Volume 71.4 fL (80.0-100.0); Monocytes % (auto) 7.1 % (0.0-12.0); Neutrophils % (auto) 85.1 % (37.0-80.0); Nucleated Red Blood Cells % 1.8 %; Red Blood Cells 5.38 10^6/uL (4.0-5.20); White Blood Cell 7.4 10^3/uL (4.4-10.8)
[2021-05-23 04:10] LABS: BUN/Creatinine Ratio 19.3; Calcium 7.2 mg/dL (8.5-10.1); Potassium 4.4 mmol/L (3.5-5.1)
[2021-05-23 04:13] LABS: Bilirubin, Total 1.7 mg/dL (0.2-1.0); Total Protein 5.8 g/dL (6.4-8.2)
[2021-05-23] MEDS: SODIUM BICARBONATE 50ML VIAL 100 ML in SOD CHL 0.45% 1,000 ML IV SCH ×2 (04:32→15:05)
[2021-05-23 04:37] LABS: Red Cell Distribution Width 20.9 % (11.8-14.3)
[2021-05-23] MEDS: DexAMETHasone SOD PHOS 10MG/1ML VIAL INJ IV SCH (09:17)
[2021-05-23] MEDS: POTASSIUM EFFERVESENT TAB 25 MEQ GT SCH (09:17)
[2021-05-23] MEDS: FUROSEMIDE 100 MG/10ML VIAL IV SCH (09:17)
[2021-05-23] MEDS: ASPirin 81 mg TAB PO SCH (09:17)
[2021-05-23] MEDS: PANTOPRAZOLE 40 MG/10 ML VIAL INJ IV SCH (09:17)
[2021-05-23] MEDS: ZINC SULFATE 220mg CAP or TAB PO SCH (09:18)
[2021-05-23] MEDS: CHOLECALCIFEROL (VITD3) 2,000 UNIT CAP/TAB PO SCH (09:19)
[2021-05-23] MEDS: ASCORBIC ACID 1,000 MG TAB PO SCH (09:19)
[2021-05-23] MEDS: CARVEDILOL 3.125 MG TAB PO SCH (09:21)
[2021-05-23] MEDS: SPIRONOLACTONE 25 MG TAB PO SCH (09:21)
[2021-05-23] MEDS: InsuLIN REG 1unit/0.01ml Soln (100units/ml) SC SCH ×2 (12:00→18:00)
[2021-05-23] MEDS ORDERED: DEXTROSE (50%) 50ML SYRG IV PRN (12:00)
[2021-05-23] MEDS ORDERED: hydrALAZINE HCL 20 MG/ML VL IV PRN (12:00)
[2021-05-23] MEDS ORDERED: Glucerna 1.2 Cal 1Liter BOTTLE GT SCH (12:15)
[2021-05-23] MEDS: ACCU-CHEK COMFORT CURVE STRIP VI SCH ×2 (12:24→18:00)
[2021-05-23] MEDS: INSULIN LANTUS (GLARGINE) 1 /0.01ml (100units/ml) SC SCH (12:43)
[2021-05-23] MEDS: ENOXAPARIN SOD 40 MG/0.4 ML SYRINGE SC SCH (12:44)
[2021-05-23] MEDS: LACTULOSE 20Gm/30ML SOLN PO SCH (12:44)
[2021-05-23] MEDS ORDERED: REMDESIVIR 100mg 100 MG in SODIUM CHL 0.9% 230 ML IV SCH (15:00)
[2021-05-23] MEDS: NOREPINEPHRINE 8 MG/250ML KIT 250 ML IV SCH (19:47)
[2021-05-23] MEDS: cefTRIAXone 1GM/50ML D5W 50 ML IV SCH (21:01)
[2021-05-23] MEDS: ATORVASTATIN 20 MG TAB PO SCH (21:01)
[2021-05-23] MEDS: AZITHROMYCIN 500MG/ 250ML 250 ML IV SCH (21:34)
[2021-05-24] VITALS (101 sets, daily range): BP systolic 104–143; BP diastolic 62–98
[2021-05-24] MEDS: MIDAZOLAM DRIP 50 mg/50mL 50 ML IV SCH ×3 (00:48→22:10)
[2021-05-24] MEDS: ACCU-CHEK COMFORT CURVE STRIP VI SCH ×5 (00:49→23:43)
[2021-05-24] MEDS: InsuLIN REG 1unit/0.01ml Soln (100units/ml) SC SCH ×5 (00:52→23:10)
[2021-05-24] MEDS: PHENYLEPHRINE IV 250 ML IV SCH ×3 (02:45→19:25)
[2021-05-24 03:30] LABS: Basophils # (auto) 0 10 ^3/uL (0-0.2); Eosinophils # (auto) 0 10 ^3/uL (0-0.8); Monocytes # (auto) 0.6 10 ^3/uL (0-1.3); Neutrophils # (auto) 5.9 10 ^3/uL (1.6-8.6); Neutrophils % (auto) 86.1 % (37.0-80.0)
[2021-05-24 03:32] LABS: Basophils % (auto) 0.1 % (0.0-2.0); Hemoglobin 11.7 g/dL (12.2-16.2); Lymphocytes # (auto) 0.4 10 ^3/uL (0.4-5.4); Lymphocytes % (auto) 5.8 % (10.0-50.0); Mean Corpuscular Hemoglobin 21.8 pg (28.0-32.0); Mean Corpuscular Hgb Conc. 30.7 g/dL (32.0-36.0); Red Blood Cells 5.35 10^6/uL (4.0-5.20); White Blood Cell 6.9 10^3/uL (4.4-10.8)
[2021-05-24 03:56] LABS: Albumin 1.9 g/dL (3.4-5.0); Calcium 7.3 mg/dL (8.5-10.1); Potassium 3.5 mmol/L (3.5-5.1)
[2021-05-24 04:00] LABS: BUN/Creatinine Ratio 24.7; Bilirubin, Total 1.2 mg/dL (0.2-1.0); Total Protein 5.7 g/dL (6.4-8.2)
[2021-05-24] MEDS: THIAMINE 100mg/ml INJ (200mg/2ml VIAL) IV SCH (08:39)
[2021-05-24] MEDS: POTASSIUM EFFERVESENT TAB 25 MEQ GT SCH (08:39)
[2021-05-24] MEDS: DexAMETHasone SOD PHOS 10MG/1ML VIAL INJ IV SCH (08:39)
[2021-05-24] MEDS: ENOXAPARIN SOD 40 MG/0.4 ML SYRINGE SC SCH (08:40)
[2021-05-24] MEDS: PANTOPRAZOLE 40 MG/10 ML VIAL INJ IV SCH (08:40)
[2021-05-24] MEDS: FUROSEMIDE 40 MG/4 ML VIAL IV SCH (09:15)
[2021-05-24] MEDS: ZINC SULFATE 220mg CAP or TAB PO SCH (09:16)
[2021-05-24] MEDS: LACTULOSE 20Gm/30ML SOLN PO SCH (09:16)
[2021-05-24] MEDS: SPIRONOLACTONE 25 MG TAB PO SCH (09:16)
[2021-05-24] MEDS: ASCORBIC ACID 1,000 MG TAB PO SCH (09:16)
[2021-05-24] MEDS: CHOLECALCIFEROL (VITD3) 2,000 UNIT CAP/TAB PO SCH (09:16)
[2021-05-24] MEDS: ASPirin 81 mg TAB PO SCH (09:16)
[2021-05-24] MEDS: INSULIN LANTUS (GLARGINE) 1 /0.01ml (100units/ml) SC SCH (09:17)
[2021-05-24] MEDS: SODIUM BICARBONATE 50ML VIAL 100 ML in SOD CHL 0.45% 1,000 ML IV SCH (09:18)
[2021-05-24] MEDS: FOLIC ACID 1 MG in D5W 5% 50 ML INJ SCH (10:30)
[2021-05-24] MEDS: fentaNYL Drip 2500mCg/250mlNS 250 ML IV SCH (14:00)
[2021-05-24] MEDS ORDERED: REMDESIVIR 100mg 100 MG in SODIUM CHL 0.9% 230 ML IV SCH (15:00)
[2021-05-24] MEDS: cefTRIAXone 1GM/50ML D5W 50 ML IV SCH (21:26)
[2021-05-24] MEDS: ATORVASTATIN 20 MG TAB PO SCH (22:15)
[2021-05-24] MEDS: AZITHROMYCIN 500MG/ 250ML 250 ML IV SCH (22:15)
[2021-05-25] VITALS (96 sets, daily range): BP systolic 96–127; BP diastolic 61–90
[2021-05-25] MEDS: NOREPINEPHRINE 8 MG/250ML KIT 250 ML IV SCH (00:30)
[2021-05-25] MEDS: fentaNYL Drip 2500mCg/250mlNS 250 ML IV SCH (02:30)
[2021-05-25] MEDS: PHENYLEPHRINE IV 250 ML IV SCH ×3 (03:45→20:25)
[2021-05-25] MEDS: MIDAZOLAM DRIP 50 mg/50mL 50 ML IV SCH (04:10)
[2021-05-25 05:38] LABS: Basophils # (auto) 0 10 ^3/uL (0-0.2); Eosinophils # (auto) 0 10 ^3/uL (0-0.8); Hemoglobin 11.8 g/dL (12.2-16.2); Lymphocytes # (auto) 0.5 10 ^3/uL (0.4-5.4); Monocytes # (auto) 0.5 10 ^3/uL (0-1.3); White Blood Cell 5.4 10^3/uL (4.4-10.8)
[2021-05-25 05:41] LABS: Basophils % (auto) 0.1 % (0.0-2.0); Hematocrit 39.5 % (36.0-46.0); Mean Corpuscular Hemoglobin 21.6 pg (28.0-32.0); Mean Corpuscular Volume 72.1 fL (80.0-100.0); Monocytes % (auto) 9.3 % (0.0-12.0); Neutrophils # (auto) 4.4 10 ^3/uL (1.6-8.6); Neutrophils % (auto) 81.6 % (37.0-80.0); Nucleated Red Blood Cells % 0.8 %; Red Blood Cells 5.48 10^6/uL (4.0-5.20); Red Cell Distribution Width 20.5 % (11.8-14.3)
[2021-05-25 06:04] LABS: Albumin 1.9 g/dL (3.4-5.0); BUN/Creatinine Ratio 28.2; Calcium 7.6 mg/dL (8.5-10.1); Potassium 3.7 mmol/L (3.5-5.1)
[2021-05-25] MEDS: ACCU-CHEK COMFORT CURVE STRIP VI SCH ×3 (06:04→18:20)
[2021-05-25] MEDS: InsuLIN REG 1unit/0.01ml Soln (100units/ml) SC SCH ×3 (06:04→18:20)
[2021-05-25 06:07] LABS: Bilirubin, Total 1.3 mg/dL (0.2-1.0); Total Protein 5.8 g/dL (6.4-8.2)
[2021-05-25] MEDS: ASPirin 81 mg TAB PO SCH (10:00)
[2021-05-25] MEDS: SPIRONOLACTONE 25 MG TAB PO SCH (10:00)
[2021-05-25] MEDS: PANTOPRAZOLE 40 MG/10 ML VIAL INJ IV SCH (10:00)
[2021-05-25] MEDS: ASCORBIC ACID 1,000 MG TAB PO SCH (10:00)
[2021-05-25] MEDS: CHOLECALCIFEROL (VITD3) 2,000 UNIT CAP/TAB PO SCH (10:00)
[2021-05-25] MEDS: LACTULOSE 20Gm/30ML SOLN PO SCH (10:00)
[2021-05-25] MEDS: INSULIN LANTUS (GLARGINE) 1 /0.01ml (100units/ml) SC SCH (10:00)
[2021-05-25] MEDS: POTASSIUM EFFERVESENT TAB 25 MEQ GT SCH (10:00)
[2021-05-25] MEDS: FOLIC ACID 1 MG in D5W 5% 50 ML INJ SCH (10:00)
[2021-05-25] MEDS: SODIUM BICARBONATE 50ML VIAL 100 ML in SOD CHL 0.45% 1,000 ML IV SCH (10:00)
[2021-05-25] MEDS: FUROSEMIDE 40 MG/4 ML VIAL IV SCH (10:00)
[2021-05-25] MEDS: DexAMETHasone SOD PHOS 10MG/1ML VIAL INJ IV SCH (10:00)
[2021-05-25] MEDS: THIAMINE 100mg/ml INJ (200mg/2ml VIAL) IV SCH (10:00)
[2021-05-25] MEDS: ZINC SULFATE 220mg CAP or TAB PO SCH (10:00)
[2021-05-25] MEDS: ENOXAPARIN SOD 40 MG/0.4 ML SYRINGE SC SCH (10:00)
[2021-05-25] MEDS: cefTRIAXone 1GM/50ML D5W 50 ML IV SCH (20:40)
[2021-05-25] MEDS: ATORVASTATIN 20 MG TAB PO SCH (22:03)
[2021-05-25] MEDS: AZITHROMYCIN 500MG/ 250ML 250 ML IV SCH (22:03)
[2021-05-26] VITALS (101 sets, daily range): BP systolic 102–150; BP diastolic 54–101
[2021-05-26] MEDS: ACCU-CHEK COMFORT CURVE STRIP VI SCH ×4 (00:14→19:47)
[2021-05-26] MEDS: InsuLIN REG 1unit/0.01ml Soln (100units/ml) SC SCH ×4 (00:16→19:47)
[2021-05-26] MEDS: NOREPINEPHRINE 8 MG/250ML KIT 250 ML IV SCH (00:30)
[2021-05-26] MEDS: fentaNYL Drip 2500mCg/250mlNS 250 ML IV SCH (03:05)
[2021-05-26 04:23] LABS: Basophils # (auto) 0 10 ^3/uL (0-0.2); Basophils % (auto) 0.1 % (0.0-2.0); Eosinophils # (auto) 0 10 ^3/uL (0-0.8); White Blood Cell 3.7 10^3/uL (4.4-10.8)
[2021-05-26 04:24] LABS: Hematocrit 39.5 % (36.0-46.0); Hemoglobin 11.8 g/dL (12.2-16.2); Lymphocytes # (auto) 0.3 10 ^3/uL (0.4-5.4); Lymphocytes % (auto) 8.7 % (10.0-50.0); Mean Corpuscular Hemoglobin 21.6 pg (28.0-32.0); Mean Corpuscular Hgb Conc. 29.9 g/dL (32.0-36.0); Monocytes # (auto) 0.3 10 ^3/uL (0-1.3); Monocytes % (auto) 9.5 % (0.0-12.0); Neutrophils % (auto) 81.7 % (37.0-80.0); Red Blood Cells 5.49 10^6/uL (4.0-5.20)
[2021-05-26 04:26] LABS: Red Cell Distribution Width 20.9 % (11.8-14.3)
[2021-05-26 04:38] LABS: Calcium 7.8 mg/dL (8.5-10.1); Potassium 3.8 mmol/L (3.5-5.1)
[2021-05-26 04:40] LABS: BUN/Creatinine Ratio 33.3
[2021-05-26 04:43] LABS: Bilirubin, Total 1.2 mg/dL (0.2-1.0)
[2021-05-26] MEDS: PHENYLEPHRINE IV 250 ML IV SCH ×3 (04:45→21:25)
[2021-05-26] MEDS: THIAMINE 100mg/ml INJ (200mg/2ml VIAL) IV SCH (08:53)
[2021-05-26] MEDS: DexAMETHasone SOD PHOS 10MG/1ML VIAL INJ IV SCH (08:56)
[2021-05-26] MEDS: PANTOPRAZOLE 40 MG/10 ML VIAL INJ IV SCH (08:59)
[2021-05-26] MEDS: FUROSEMIDE 40 MG/4 ML VIAL IV SCH (09:03)
[2021-05-26] MEDS: LACTULOSE 20Gm/30ML SOLN PO SCH (09:05)
[2021-05-26] MEDS: ASCORBIC ACID 1,000 MG TAB PO SCH (09:05)
[2021-05-26] MEDS: CHOLECALCIFEROL (VITD3) 2,000 UNIT CAP/TAB PO SCH (09:06)
[2021-05-26] MEDS: SPIRONOLACTONE 25 MG TAB PO SCH (09:06)
[2021-05-26] MEDS: POTASSIUM EFFERVESENT TAB 25 MEQ GT SCH (09:06)
[2021-05-26] MEDS: ASPirin 81 mg TAB PO SCH (09:06)
[2021-05-26] MEDS: ZINC SULFATE 220mg CAP or TAB PO SCH (09:06)
[2021-05-26] MEDS: ENOXAPARIN SOD 40 MG/0.4 ML SYRINGE SC SCH (09:07)
[2021-05-26] MEDS: INSULIN LANTUS (GLARGINE) 1 /0.01ml (100units/ml) SC SCH (09:47)
[2021-05-26] MEDS: FOLIC ACID 1 MG in D5W 5% 50 ML INJ SCH (10:00)
[2021-05-26] MEDS: cefTRIAXone 1GM/50ML D5W 50 ML IV SCH (20:46)
[2021-05-26] MEDS: AZITHROMYCIN 500MG/ 250ML 250 ML IV SCH (21:30)
[2021-05-26] MEDS: ATORVASTATIN 20 MG TAB PO SCH (22:00)
[2021-05-27] VITALS (98 sets, daily range): BP systolic 109–141; BP diastolic 69–106
[2021-05-27] MEDS: MIDAZOLAM DRIP 50 mg/50mL 50 ML IV SCH (00:30)
[2021-05-27] MEDS: NOREPINEPHRINE 8 MG/250ML KIT 250 ML IV SCH (00:30)
[2021-05-27] MEDS: PHENYLEPHRINE IV 250 ML IV SCH ×3 (05:45→14:05)
[2021-05-27] MEDS: InsuLIN REG 1unit/0.01ml Soln (100units/ml) SC SCH ×4 (06:27→18:30)
[2021-05-27] MEDS: ACCU-CHEK COMFORT CURVE STRIP VI SCH ×4 (06:27→18:30)
[2021-05-27] MEDS: fentaNYL Drip 2500mCg/250mlNS 250 ML IV SCH (07:40)
[2021-05-27] MEDS: ENOXAPARIN SOD 40 MG/0.4 ML SYRINGE SC SCH (10:08)
[2021-05-27] MEDS: ASPirin 81 mg TAB PO SCH (10:08)
[2021-05-27] MEDS: LACTULOSE 20Gm/30ML SOLN PO SCH (10:08)
[2021-05-27] MEDS: ASCORBIC ACID 1,000 MG TAB PO SCH (10:08)
[2021-05-27] MEDS: PANTOPRAZOLE 40 MG/10 ML VIAL INJ IV SCH (10:08)
[2021-05-27] MEDS: POTASSIUM EFFERVESENT TAB 25 MEQ GT SCH (10:08)
[2021-05-27] MEDS: DexAMETHasone SOD PHOS 10MG/1ML VIAL INJ IV SCH (10:09)
[2021-05-27] MEDS: SPIRONOLACTONE 25 MG TAB PO SCH (10:09)
[2021-05-27] MEDS: CHOLECALCIFEROL (VITD3) 2,000 UNIT CAP/TAB PO SCH (10:09)
[2021-05-27] MEDS: ZINC SULFATE 220mg CAP or TAB PO SCH (10:09)
[2021-05-27] MEDS: FUROSEMIDE 40 MG/4 ML VIAL IV SCH (10:10)
[2021-05-27] MEDS: THIAMINE 100mg/ml INJ (200mg/2ml VIAL) IV SCH (10:10)
[2021-05-27] MEDS: INSULIN LANTUS (GLARGINE) 1 /0.01ml (100units/ml) SC SCH (13:07)
[2021-05-27] MEDS: FOLIC ACID 1 MG in D5W 5% 50 ML INJ SCH (13:09)
[2021-05-27] MEDS: ATORVASTATIN 20 MG TAB PO SCH (22:25)
[2021-05-28] VITALS (104 sets, daily range): BP systolic 116–145; BP diastolic 68–104
[2021-05-28] MEDS: InsuLIN REG 1unit/0.01ml Soln (100units/ml) SC SCH ×4 (00:17→18:00)
[2021-05-28] MEDS: ACCU-CHEK COMFORT CURVE STRIP VI SCH ×4 (00:18→18:00)
[2021-05-28] MEDS: NOREPINEPHRINE 8 MG/250ML KIT 250 ML IV SCH (07:30)
[2021-05-28] MEDS: MIDAZOLAM DRIP 50 mg/50mL 50 ML IV SCH (07:30)
[2021-05-28] MEDS: PHENYLEPHRINE IV 250 ML IV SCH ×3 (08:20→23:25)
[2021-05-28] MEDS: INSULIN LANTUS (GLARGINE) 1 /0.01ml (100units/ml) SC SCH (11:51)
[2021-05-28] MEDS: POTASSIUM EFFERVESENT TAB 25 MEQ GT SCH (12:30)
[2021-05-28] MEDS: ZINC SULFATE 220mg CAP or TAB PO SCH (12:30)
[2021-05-28] MEDS: ASCORBIC ACID 1,000 MG TAB PO SCH (12:30)
[2021-05-28] MEDS: CHOLECALCIFEROL (VITD3) 2,000 UNIT CAP/TAB PO SCH (12:30)
[2021-05-28] MEDS: ASPirin 81 mg TAB PO SCH (12:30)
[2021-05-28] MEDS: DexAMETHasone SOD PHOS 10MG/1ML VIAL INJ IV SCH (12:30)
[2021-05-28] MEDS: THIAMINE 100mg/ml INJ (200mg/2ml VIAL) IV SCH (12:30)
[2021-05-28] MEDS: SPIRONOLACTONE 25 MG TAB PO SCH (12:30)
[2021-05-28] MEDS: ENOXAPARIN SOD 40 MG/0.4 ML SYRINGE SC SCH (12:30)
[2021-05-28] MEDS: FUROSEMIDE 40 MG/4 ML VIAL IV SCH (12:30)
[2021-05-28] MEDS: LACTULOSE 20Gm/30ML SOLN PO SCH (12:30)
[2021-05-28] MEDS: PANTOPRAZOLE 40 MG/10 ML VIAL INJ IV SCH (12:30)
[2021-05-28] MEDS: fentaNYL Drip 2500mCg/250mlNS 250 ML IV SCH (14:04)
[2021-05-28] MEDS: ACETAMINOPHEN 650 mg PER 20.3 mL UD PO PRN (14:04)
[2021-05-28] MEDS: FOLIC ACID 1 MG in D5W 5% 50 ML INJ SCH (18:59)
[2021-05-28] MEDS: ATORVASTATIN 20 MG TAB PO SCH (22:13)
[2021-05-29] VITALS (92 sets, daily range): BP systolic 80–144; BP diastolic 45–107
[2021-05-29] MEDS: NOREPINEPHRINE 8 MG/250ML KIT 250 ML IV SCH (00:30)
[2021-05-29] MEDS: MIDAZOLAM DRIP 50 mg/50mL 50 ML IV SCH (00:30)
[2021-05-29 00:49] LABS: Basophils # (auto) 0 10 ^3/uL (0-0.2); Eosinophils # (auto) 0 10 ^3/uL (0-0.8); Eosinophils % (auto) 0.1 % (0.0-7.0); Nucleated Red Blood Cells % 0.2 %
[2021-05-29 00:50] LABS: Basophils % (auto) 0.4 % (0.0-2.0); Hematocrit 47.6 % (36.0-46.0); Hemoglobin 14.7 g/dL (12.2-16.2); Lymphocytes # (auto) 0.6 10 ^3/uL (0.4-5.4); Lymphocytes % (auto) 7.3 % (10.0-50.0); Mean Corpuscular Hemoglobin 22.2 pg (28.0-32.0); Mean Corpuscular Hgb Conc. 30.8 g/dL (32.0-36.0); Mean Corpuscular Volume 72.2 fL (80.0-100.0); Monocytes # (auto) 0.3 10 ^3/uL (0-1.3); Monocytes % (auto) 4.1 % (0.0-12.0); Neutrophils # (auto) 6.8 10 ^3/uL (1.6-8.6); Neutrophils % (auto) 88.1 % (37.0-80.0); White Blood Cell 7.7 10^3/uL (4.4-10.8)
[2021-05-29 01:02] LABS: BUN/Creatinine Ratio 35.9; Calcium 8.7 mg/dL (8.5-10.1); Potassium 3.8 mmol/L (3.5-5.1)
[2021-05-29 04:17] LABS: Basophils # (auto) 0 10 ^3/uL (0-0.2); Basophils % (auto) 0.1 % (0.0-2.0); Eosinophils # (auto) 0 10 ^3/uL (0-0.8); Hemoglobin 14.1 g/dL (12.2-16.2); Monocytes # (auto) 0.4 10 ^3/uL (0-1.3)
[2021-05-29 04:22] LABS: Eosinophils % (auto) 0.1 % (0.0-7.0); Hematocrit 45.8 % (36.0-46.0); Lymphocytes # (auto) 0.5 10 ^3/uL (0.4-5.4); Lymphocytes % (auto) 7.9 % (10.0-50.0); Mean Corpuscular Hgb Conc. 30.8 g/dL (32.0-36.0); Mean Corpuscular Volume 71.5 fL (80.0-100.0); Monocytes % (auto) 5.7 % (0.0-12.0); Neutrophils # (auto) 5.6 10 ^3/uL (1.6-8.6); Neutrophils % (auto) 86.2 % (37.0-80.0); Nucleated Red Blood Cells % 0.2 %; White Blood Cell 6.5 10^3/uL (4.4-10.8)
[2021-05-29] MEDS: fentaNYL Drip 2500mCg/250mlNS 250 ML IV SCH (04:30)
[2021-05-29 04:32] LABS: Calcium 8.7 mg/dL (8.5-10.1); Potassium 3.6 mmol/L (3.5-5.1)
[2021-05-29 04:35] LABS: BUN/Creatinine Ratio 34.7
[2021-05-29] MEDS: ACCU-CHEK COMFORT CURVE STRIP VI SCH ×4 (06:13→17:36)
[2021-05-29] MEDS: InsuLIN REG 1unit/0.01ml Soln (100units/ml) SC SCH ×4 (06:13→17:36)
[2021-05-29] MEDS: PHENYLEPHRINE IV 250 ML IV SCH ×2 (07:45→16:05)
[2021-05-29] MEDS: POTASSIUM EFFERVESENT TAB 25 MEQ GT SCH (10:00)
[2021-05-29] MEDS: INSULIN LANTUS (GLARGINE) 1 /0.01ml (100units/ml) SC SCH (10:00)
[2021-05-29] MEDS: ENOXAPARIN SOD 40 MG/0.4 ML SYRINGE SC SCH (10:00)
[2021-05-29] MEDS: PANTOPRAZOLE 40 MG/10 ML VIAL INJ IV SCH (10:00)
[2021-05-29] MEDS: DexAMETHasone SOD PHOS 10MG/1ML VIAL INJ IV SCH (10:00)
[2021-05-29] MEDS: THIAMINE 100mg/ml INJ (200mg/2ml VIAL) IV SCH (10:00)
[2021-05-29] MEDS: ASCORBIC ACID 1,000 MG TAB PO SCH (10:00)
[2021-05-29] MEDS: FUROSEMIDE 40 MG/4 ML VIAL IV SCH (10:00)
[2021-05-29] MEDS: SPIRONOLACTONE 25 MG TAB PO SCH (10:00)
[2021-05-29] MEDS: LACTULOSE 20Gm/30ML SOLN PO SCH (10:00)
[2021-05-29] MEDS: ZINC SULFATE 220mg CAP or TAB PO SCH (10:00)
[2021-05-29] MEDS: FOLIC ACID 1 MG in D5W 5% 50 ML INJ SCH (10:00)
[2021-05-29] MEDS: CHOLECALCIFEROL (VITD3) 2,000 UNIT CAP/TAB PO SCH (10:00)
[2021-05-29] MEDS: ASPirin 81 mg TAB PO SCH (10:00)
[2021-05-29] MEDS: ATORVASTATIN 20 MG TAB PO SCH (22:00)
[2021-05-30] VITALS (16 sets, daily range): BP systolic 109–147; BP diastolic 73–86
[2021-05-30] MEDS: PHENYLEPHRINE IV 250 ML IV SCH ×4 (00:25→11:19)
[2021-05-30] MEDS: MIDAZOLAM DRIP 50 mg/50mL 50 ML IV SCH ×2 (00:30→11:18)
[2021-05-30] MEDS: NOREPINEPHRINE 8 MG/250ML KIT 250 ML IV SCH ×2 (00:30→11:18)
[2021-05-30] MEDS: MORPHINE SULFATE INJECTION 2 MG/ML SYRG IV PRN ×2 (02:00→10:00)
[2021-05-30] MEDS: InsuLIN REG 1unit/0.01ml Soln (100units/ml) SC SCH ×5 (03:04→23:10)
[2021-05-30] MEDS: fentaNYL Drip 2500mCg/250mlNS 250 ML IV SCH ×2 (04:30→11:19)
[2021-05-30] MEDS: ACCU-CHEK COMFORT CURVE STRIP VI SCH ×5 (05:43→23:09)
[2021-05-30] MEDS: ZINC SULFATE 220mg CAP or TAB PO SCH (10:00)
[2021-05-30] MEDS: ASPirin 81 mg TAB PO SCH (10:00)
[2021-05-30] MEDS: SPIRONOLACTONE 25 MG TAB PO SCH (10:00)
[2021-05-30] MEDS: THIAMINE 100mg/ml INJ (200mg/2ml VIAL) IV SCH (10:00)
[2021-05-30] MEDS: POTASSIUM EFFERVESENT TAB 25 MEQ GT SCH (10:00)
[2021-05-30] MEDS: INSULIN LANTUS (GLARGINE) 1 /0.01ml (100units/ml) SC SCH (10:00)
[2021-05-30] MEDS: LACTULOSE 20Gm/30ML SOLN PO SCH (10:00)
[2021-05-30] MEDS: FOLIC ACID 1 MG in D5W 5% 50 ML INJ SCH (10:00)
[2021-05-30] MEDS: FUROSEMIDE 40 MG/4 ML VIAL IV SCH (10:00)
[2021-05-30] MEDS: DexAMETHasone SOD PHOS 10MG/1ML VIAL INJ IV SCH (10:00)
[2021-05-30] MEDS: CHOLECALCIFEROL (VITD3) 2,000 UNIT CAP/TAB PO SCH (10:00)
[2021-05-30] MEDS: ASCORBIC ACID 1,000 MG TAB PO SCH (10:00)
[2021-05-30] MEDS: ENOXAPARIN SOD 40 MG/0.4 ML SYRINGE SC SCH (10:00)
[2021-05-30] MEDS: PANTOPRAZOLE 40 MG/10 ML VIAL INJ IV SCH (10:00)
[2021-05-30] MEDS: ACETAMINOPHEN 650 mg PER 20.3 mL UD PO PRN (17:39)
[2021-05-30] MEDS ORDERED: InsuLIN REG 1unit/0.01ml Soln (100units/ml) SC ONE (17:45)
[2021-05-30] MEDS: ACETAMINOPHEN 325 MG TAB PO PRN (19:01)
[2021-05-30] MEDS: ALPRAZolam 0.25 MG TAB PO PRN (21:31)
[2021-05-30] MEDS: ATORVASTATIN 20 MG TAB PO SCH (21:35)
[2021-05-30] MEDS ORDERED: ALPRAZolam 0.25 MG TAB PO SCH (22:00)
[2021-05-30] MEDS ORDERED: INSULIN LANTUS (GLARGINE) 1 /0.01ml (100units/ml) SC ONE (22:00)
[2021-05-31] MEDS: ACETAMINOPHEN 325 MG TAB PO PRN ×2 (01:39→15:15)
[2021-05-31] MEDS: MORPHINE SULFATE INJECTION 2 MG/ML SYRG IV PRN ×2 (05:02→20:43)
[2021-05-31] MEDS: ACCU-CHEK COMFORT CURVE STRIP VI SCH ×4 (06:45→23:56)
[2021-05-31] MEDS: InsuLIN REG 1unit/0.01ml Soln (100units/ml) SC SCH ×4 (06:48→23:56)
[2021-05-31 08:00] VITALS: BP 129/87
[2021-05-31] MEDS: POTASSIUM EFFERVESENT TAB 25 MEQ GT SCH (11:37)
[2021-05-31] MEDS: DexAMETHasone SOD PHOS 10MG/1ML VIAL INJ IV SCH (11:39)
[2021-05-31] MEDS: THIAMINE 100mg/ml INJ (200mg/2ml VIAL) IV SCH (11:39)
[2021-05-31] MEDS: ASPirin 81 mg TAB PO SCH (11:40)
[2021-05-31] MEDS: LACTULOSE 20Gm/30ML SOLN PO SCH (11:40)
[2021-05-31] MEDS: PANTOPRAZOLE 40 MG/10 ML VIAL INJ IV SCH (11:40)
[2021-05-31] MEDS: FUROSEMIDE 40 MG/4 ML VIAL IV SCH (11:40)
[2021-05-31] MEDS: ZINC SULFATE 220mg CAP or TAB PO SCH (11:40)
[2021-05-31] MEDS: CHOLECALCIFEROL (VITD3) 2,000 UNIT CAP/TAB PO SCH (11:41)
[2021-05-31] MEDS: SPIRONOLACTONE 25 MG TAB PO SCH (11:41)
[2021-05-31] MEDS: ENOXAPARIN SOD 40 MG/0.4 ML SYRINGE SC SCH (11:41)
[2021-05-31] MEDS: ASCORBIC ACID 1,000 MG TAB PO SCH (11:41)
[2021-05-31 11:58] LABS: Basophils # (auto) 0 10 ^3/uL (0-0.2); Basophils % (auto) 0.2 % (0.0-2.0); Eosinophils # (auto) 0 10 ^3/uL (0-0.8); Lymphocytes # (auto) 0.8 10 ^3/uL (0.4-5.4); Mean Corpuscular Volume 71.3 fL (80.0-100.0); Monocytes # (auto) 0.8 10 ^3/uL (0-1.3); Monocytes % (auto) 6.7 % (0.0-12.0)
[2021-05-31 12:00] VITALS: BP 120/80
[2021-05-31 12:01] LABS: Hematocrit 47.1 % (36.0-46.0); Hemoglobin 14.3 g/dL (12.2-16.2); Lymphocytes % (auto) 6.9 % (10.0-50.0); Mean Corpuscular Hemoglobin 21.7 pg (28.0-32.0); Mean Corpuscular Hgb Conc. 30.4 g/dL (32.0-36.0); Neutrophils % (auto) 86.2 % (37.0-80.0); White Blood Cell 11.6 10^3/uL (4.4-10.8)
[2021-05-31] MEDS: INSULIN LANTUS (GLARGINE) 1 /0.01ml (100units/ml) SC SCH (12:16)
[2021-05-31 12:18] LABS: Potassium 4.2 mmol/L (3.5-5.1)
[2021-05-31 12:25] LABS: BUN/Creatinine Ratio 30.4; Calcium 8.5 mg/dL (8.5-10.1)
[2021-05-31] MEDS: FOLIC ACID 1 MG in D5W 5% 50 ML INJ SCH (12:31)
[2021-05-31 12:34] LABS: Red Cell Distribution Width 20.8 % (11.8-14.3)
[2021-05-31 16:00] VITALS: BP 119/82
[2021-05-31] MEDS: ATORVASTATIN 20 MG TAB PO SCH (20:41)
[2021-06-01 05:00] VITALS: BP 121/84
[2021-06-01] MEDS: ACCU-CHEK COMFORT CURVE STRIP VI SCH ×4 (06:20→23:48)
[2021-06-01] MEDS: InsuLIN REG 1unit/0.01ml Soln (100units/ml) SC SCH ×4 (06:21→23:48)
[2021-06-01 09:00] VITALS: BP 110/71
[2021-06-01] MEDS: THIAMINE 100mg/ml INJ (200mg/2ml VIAL) IV SCH (09:49)
[2021-06-01] MEDS: POTASSIUM EFFERVESENT TAB 25 MEQ GT SCH (09:49)
[2021-06-01] MEDS: PANTOPRAZOLE 40 MG/10 ML VIAL INJ IV SCH (09:50)
[2021-06-01] MEDS: FUROSEMIDE 40 MG/4 ML VIAL IV SCH (09:50)
[2021-06-01] MEDS: ASPirin 81 mg TAB PO SCH (09:50)
[2021-06-01] MEDS: LACTULOSE 20Gm/30ML SOLN PO SCH (09:51)
[2021-06-01] MEDS: MORPHINE SULFATE INJECTION 2 MG/ML SYRG IV PRN (09:51)
[2021-06-01] MEDS: ENOXAPARIN SOD 40 MG/0.4 ML SYRINGE SC SCH (09:51)
[2021-06-01] MEDS: ASCORBIC ACID 1,000 MG TAB PO SCH (09:51)
[2021-06-01] MEDS: CHOLECALCIFEROL (VITD3) 2,000 UNIT CAP/TAB PO SCH (09:51)
[2021-06-01] MEDS: SPIRONOLACTONE 25 MG TAB PO SCH (09:51)
[2021-06-01] MEDS: ZINC SULFATE 220mg CAP or TAB PO SCH (09:51)
[2021-06-01] MEDS: INSULIN LANTUS (GLARGINE) 1 /0.01ml (100units/ml) SC SCH (10:21)
[2021-06-01] MEDS: FOLIC ACID 1 MG in D5W 5% 50 ML INJ SCH (10:22)
[2021-06-01 13:00] VITALS: BP 120/78
[2021-06-01 17:00] VITALS: BP 122/90
[2021-06-01] MEDS: ATORVASTATIN 20 MG TAB PO SCH (20:55)
[2021-06-01] MEDS: ALPRAZolam 0.25 MG TAB PO PRN (20:55)
[2021-06-01 21:16] VITALS: BP 116/89
[2021-06-02] MEDS: ONDANSETRON HCL 4 MG/2 ML VIAL IV PRN (00:31)
[2021-06-02 02:04] VITALS: BP 108/72
[2021-06-02] MEDS: InsuLIN REG 1unit/0.01ml Soln (100units/ml) SC SCH ×4 (05:25→23:53)
[2021-06-02 05:34] VITALS: BP 112/77
[2021-06-02] MEDS: ACCU-CHEK COMFORT CURVE STRIP VI SCH ×4 (05:35→23:51)
[2021-06-02 09:00] VITALS: BP 111/79
[2021-06-02] MEDS: THIAMINE 100mg/ml INJ (200mg/2ml VIAL) IV SCH (10:09)
[2021-06-02] MEDS: FOLIC ACID 1 MG in D5W 5% 50 ML INJ SCH (10:09)
[2021-06-02] MEDS: POTASSIUM EFFERVESENT TAB 25 MEQ GT SCH (10:09)
[2021-06-02] MEDS: FUROSEMIDE 40 MG/4 ML VIAL IV SCH (10:10)
[2021-06-02] MEDS: ZINC SULFATE 220mg CAP or TAB PO SCH (10:11)
[2021-06-02] MEDS: ASCORBIC ACID 1,000 MG TAB PO SCH (10:11)
[2021-06-02] MEDS: PANTOPRAZOLE 40 MG/10 ML VIAL INJ IV SCH (10:11)
[2021-06-02] MEDS: SPIRONOLACTONE 25 MG TAB PO SCH (10:11)
[2021-06-02] MEDS: LACTULOSE 20Gm/30ML SOLN PO SCH (10:11)
[2021-06-02] MEDS: ASPirin 81 mg TAB PO SCH (10:11)
[2021-06-02] MEDS: INSULIN LANTUS (GLARGINE) 1 /0.01ml (100units/ml) SC SCH (10:12)
[2021-06-02] MEDS: CHOLECALCIFEROL (VITD3) 2,000 UNIT CAP/TAB PO SCH (10:12)
[2021-06-02] MEDS: ENOXAPARIN SOD 40 MG/0.4 ML SYRINGE SC SCH (10:12)
[2021-06-02 13:00] VITALS: BP 104/71
[2021-06-02 17:00] VITALS: BP 108/60
[2021-06-02] MEDS: ALPRAZolam 0.25 MG TAB PO PRN (17:13)
[2021-06-02] MEDS: ATORVASTATIN 20 MG TAB PO SCH (21:57)
[2021-06-02 22:00] VITALS: BP 111/76
[2021-06-03] MEDS: ONDANSETRON HCL 4 MG/2 ML VIAL IV PRN (02:05)
[2021-06-03 05:00] VITALS: BP 135/77
[2021-06-03] MEDS: ACCU-CHEK COMFORT CURVE STRIP VI SCH ×4 (05:37→23:18)
[2021-06-03] MEDS: InsuLIN REG 1unit/0.01ml Soln (100units/ml) SC SCH ×4 (05:39→23:25)
[2021-06-03] MEDS: ALPRAZolam 0.25 MG TAB PO PRN ×2 (05:41→19:09)
[2021-06-03 09:00] VITALS: BP 110/78
[2021-06-03] MEDS: PANTOPRAZOLE 40 MG/10 ML VIAL INJ IV SCH (09:58)
[2021-06-03] MEDS: THIAMINE 100mg/ml INJ (200mg/2ml VIAL) IV SCH (09:58)
[2021-06-03] MEDS: LACTULOSE 20Gm/30ML SOLN PO SCH (09:58)
[2021-06-03] MEDS: POTASSIUM EFFERVESENT TAB 25 MEQ GT SCH (09:58)
[2021-06-03] MEDS: FOLIC ACID 1 MG in D5W 5% 50 ML INJ SCH (09:58)
[2021-06-03] MEDS: ASPirin 81 mg TAB PO SCH (09:58)
[2021-06-03] MEDS: SPIRONOLACTONE 25 MG TAB PO SCH (09:59)
[2021-06-03] MEDS: ASCORBIC ACID 1,000 MG TAB PO SCH (09:59)
[2021-06-03] MEDS: ENOXAPARIN SOD 40 MG/0.4 ML SYRINGE SC SCH (09:59)
[2021-06-03] MEDS: CHOLECALCIFEROL (VITD3) 2,000 UNIT CAP/TAB PO SCH (09:59)
[2021-06-03] MEDS: ZINC SULFATE 220mg CAP or TAB PO SCH (09:59)
[2021-06-03] MEDS: INSULIN LANTUS (GLARGINE) 1 /0.01ml (100units/ml) SC SCH (10:00)
[2021-06-03] MEDS: FUROSEMIDE 40 MG/4 ML VIAL IV SCH (10:00)
[2021-06-03 11:12] LABS: Basophils # (auto) 0 10 ^3/uL (0-0.2); Eosinophils # (auto) 0.1 10 ^3/uL (0-0.8); Monocytes # (auto) 0.6 10 ^3/uL (0-1.3); Nucleated Red Blood Cells % 0.1 %
[2021-06-03 11:14] LABS: Basophils % (auto) 0.3 % (0.0-2.0); Eosinophils % (auto) 0.7 % (0.0-7.0); Hematocrit 51.2 % (36.0-46.0); Hemoglobin 15.8 g/dL (12.2-16.2); Lymphocytes % (auto) 11.6 % (10.0-50.0); Mean Corpuscular Hemoglobin 21.8 pg (28.0-32.0); Mean Corpuscular Hgb Conc. 30.8 g/dL (32.0-36.0); Mean Corpuscular Volume 70.8 fL (80.0-100.0); Monocytes % (auto) 6.7 % (0.0-12.0); Neutrophils # (auto) 7.3 10 ^3/uL (1.6-8.6); Neutrophils % (auto) 80.7 % (37.0-80.0); Red Blood Cells 7.24 10^6/uL (4.0-5.20)
[2021-06-03 11:24] LABS: BUN/Creatinine Ratio 39.6; Calcium 9.3 mg/dL (8.5-10.1); Potassium 4.6 mmol/L (3.5-5.1)
[2021-06-03 12:44] VITALS: BP 109/80
[2021-06-03] MEDS: KETOCONAZOLE 2 % TOPICAL CREAM 15GM TOP SCH ×2 (15:10→21:21)
[2021-06-03 17:00] VITALS: BP 103/71
[2021-06-03] MEDS: ATORVASTATIN 20 MG TAB PO SCH (21:21)
[2021-06-03 22:00] VITALS: BP 126/81
[2021-06-04 05:00] VITALS: BP 93/61
[2021-06-04] MEDS: InsuLIN REG 1unit/0.01ml Soln (100units/ml) SC SCH ×3 (06:00→17:21)
[2021-06-04] MEDS: ACCU-CHEK COMFORT CURVE STRIP VI SCH ×3 (06:00→17:13)
[2021-06-04 09:00] VITALS: BP 109/79
[2021-06-04] MEDS: LACTULOSE 20Gm/30ML SOLN PO SCH (10:00)
[2021-06-04] MEDS: POTASSIUM EFFERVESENT TAB 25 MEQ GT SCH (10:59)
[2021-06-04] MEDS: FOLIC ACID 1 MG in D5W 5% 50 ML INJ SCH (10:59)
[2021-06-04] MEDS: THIAMINE 100mg/ml INJ (200mg/2ml VIAL) IV SCH (11:00)
[2021-06-04] MEDS: FUROSEMIDE 40 MG/4 ML VIAL IV SCH (11:01)
[2021-06-04] MEDS: PANTOPRAZOLE 40 MG/10 ML VIAL INJ IV SCH (11:01)
[2021-06-04] MEDS: ASPirin 81 mg TAB PO SCH (11:01)
[2021-06-04] MEDS: SPIRONOLACTONE 25 MG TAB PO SCH (11:02)
[2021-06-04] MEDS: ZINC SULFATE 220mg CAP or TAB PO SCH (11:02)
[2021-06-04] MEDS: ASCORBIC ACID 1,000 MG TAB PO SCH (11:03)
[2021-06-04] MEDS: CHOLECALCIFEROL (VITD3) 2,000 UNIT CAP/TAB PO SCH (11:03)
[2021-06-04] MEDS: KETOCONAZOLE 2 % TOPICAL CREAM 15GM TOP SCH (11:05)
[2021-06-04] MEDS: INSULIN LANTUS (GLARGINE) 1 /0.01ml (100units/ml) SC SCH (11:05)
[2021-06-04 12:30] VITALS: BP 116/84
[2021-06-04 17:00] VITALS: BP 122/87
[2021-06-04 17:53] VITALS: BP 109/79
== END 2021-06-04 19:12 | disposition home health service (06) | DRG 720 ==
LOC: ER 15:40 → EDBD 15:40 → TELE 22:20 → ICU WEST 05-20 22:09 → TELE-EAST 05-20 22:30 → ICU WEST 05-22 00:59 → TELE-EAST 05-30 13:20
PROVIDERS: ADMIT Nurse Practitioner; ATTEND Internal Medicine
PROC: 5A1955Z Respiratory Ventilation, Greater than 96 Consecutive Hours (ICD-10-PCS; principal; 2021-05-21)
PROC: 0BH17EZ Insertion of Endotracheal Airway into Trachea, Via Natural or Artificial Opening (ICD-10-PCS; 2021-05-21)
PROC: XW033E5 Introduction of Remdesivir Anti-infective into Peripheral Vein, Percutaneous Approach, New Technology Group 5 (ICD-10-PCS; 2021-05-21)
PROC: 02HV33Z Insertion of Infusion Device into Superior Vena Cava, Percutaneous Approach (ICD-10-PCS; 2021-05-22)
PROC: B548ZZA Ultrasonography of Superior Vena Cava, Guidance (ICD-10-PCS; 2021-05-22)
PROC: 5A12012 Performance of Cardiac Output, Single, Manual (ICD-10-PCS; 2021-05-23)
DX: A41.89 Other specified sepsis (principal); I46.9 Cardiac arrest, cause unspecified; J12.82 Pneumonia due to coronavirus disease 2019; J96.01 Acute respiratory failure with hypoxia; J44.0 Chronic obstructive pulmonary disease with (acute) lower respiratory infection; U07.1 COVID-19; R65.21 Severe sepsis with septic shock; I21.4 Non-ST elevation (NSTEMI) myocardial infarction; E78.5 Hyperlipidemia, unspecified; I11.0 Hypertensive heart disease with heart failure; I42.8 Other cardiomyopathies; J44.1 Chronic obstructive pulmonary disease with (acute) exacerbation; J98.11 Atelectasis; K70.30 Alcoholic cirrhosis of liver without ascites; E87.1 Hypo-osmolality and hyponatremia; E87.6 Hypokalemia; I50.23 Acute on chronic systolic (congestive) heart failure; K59.00 Constipation, unspecified; I49.9 Cardiac arrhythmia, unspecified; N17.9 Acute kidney failure, unspecified; Z88.6 Allergy status to analgesic agent; Z90.49 Acquired absence of other specified parts of digestive tract
CPT/HCPCS: 36415; 36600; 71045; 71275; 76700; 76705; 80048; 80053; 81001; 82140; 82728; 82805; 82962; 83036; 83605; 83615; 83735; 83880; 84484; 85007; 85025; 85027; 85379; 85610; 85730; 86141; 87040; 87070; 87077; 87081; 87205; 87426; 92950; 93005; 93306; 93970; 94002; 94003; 94640; 96374; 97110; 97116; 97530; A4618; C9113; G0378; J0330; J0696; J1100; J1815; J2250; J2405; J7060